=== PATIENT | female | born 1930 | race Caucasian/White ===

== ENCOUNTER 2016-08-09 18:55 | Inpatient (IN) | payer MEDICARE ==
[~2016-08-09 18:55] MED LIST: ACET25TA4 PO; ALIG4CAP PO; BENEPOW8 PO; CALC500T35 PO; CREO3000 PO; CYPR4TAB PO; DIAZ5TAB PO; LEVS0.124 SL; LEXA20TA PO; PLAV75TA29 PO; TRIAM.1%T TOPICAL; VITA10002 PO; VITA100064 PO; VITA400T14 PO; WELC625T2 PO
[2016-08-09 19:03] VITALS: BP 125/66; PULSE 73; RESP 18; TEMP 97.8; O2SAT 97
[2016-08-09] MEDS ORDERED: SODIUM CHLORIDE 0.9% FLUSH 5 ML FLUSH IVF PRN (19:30)
--- NOTE | 2016-08-09 19:30 | PD ---
HPI Chief Complaint: Abdominal Pain Time Seen by Provider: 19:25 Travel History International Travel<30 days: No Contact w/Intl Traveler<30days: No Traveled to known affect area: No History of Present Illness HPI 85-year-old female presents to the emergency department via EMS with complaint of abdominal pain that started today around 1 PM. She has history of intestinal spasms and bowel obstructions. She says it feels like one of her bowel obstructions and that she thinks it is. She has history of colon resection. 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 She denies nausea, vomiting, diarrhea. Had a normal bowel movement this morning and without blood. Abdominal pain is generalized. Denies dysuria, urgency, frequency, hematuria. Denies fever, chills. Denies chest pain, shortness of breath. She reports good appetite prior to onset of abdominal pain. She has not taken any additional medications than her prescribed medication today for her symptoms. Her primary care provider is Dr. Jnoes. Her sales office administrator is Dr. Saha. She has allergies to latex and adhesives. PFSH Past Medical History Arthritis: Yes Asthma: No Autoimmune Disease: No Blood Disorders: Yes (pt is on plavix) Anxiety: Yes Depression: Yes Heart Rhythm Problems: Yes Cancer: Yes (, ) Cardiovascular Problems: Yes High Cholesterol: Yes Chest Pain: No Congestive Heart Failure: No COPD: No Cerebrovascular Accident: No Coronary Artery Disease: Yes Diabetes: No Diminished Hearing: Yes (BOTH EARS) Endocrine: Yes Gastrointestinal Disorders: Yes (hx of intestinal obstruction due to ischemia , 32 per pt ) GERD: Yes Genitourinary: No Headaches: No Hepatitis: No Hiatal Hernia: Yes Hypertension: Yes Immune Disorder: No Implanted Vascular Access Dvce: Yes Kidney Stones: Yes Musculoskeletal: Yes Neurologic: No Psychiatric: Yes Reproductive: No Respiratory: No Migraines: No Myocardial Infarction: No Renal Failure: No Seizures: No Sickle Cell Disease: No Sleep Apnea: No Thyroid Disease: No Ulcer: Yes ?: Not Menopausal: Yes Past Surgical History Abdominal Surgery: Yes (,COLOSTOMY REVERSAL,,COLON RESECTION) Appendectomy: Yes (1951) Arteriovenous Shunt: No Body Medical Devices: back hardware Cardiac Surgery: No Cholecystectomy: Yes Ear Surgery: No Endocrine Surgery: No Eye Surgery: Yes (eye muscle repair [place] cataract surgery) Genitourinary Surgery: No Gynecologic Surgery: Yes (hysterectomy) Hysterectomy: Yes (1963,partial,ovaries left) Insulin Pump: No Joint Replacement: Yes (right knee replaced) Neurologic Surgery: Yes (1994,laminectomy s1,l5,4 fused 2007,lumbar laminectomy & fusion) Oral Surgery: No Pacemaker: Yes Thoracic Surgery: Yes (PACEMAKER PLACEMENT) 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, hemorrhoidectomy) Social History Alcohol Use: No Tobacco Use: No Substance Use: No Allergies-Medications (Allergen,Severity, Reaction): Coded Allergies: Adhesives (Verified Allergy, Severe, REDNESS, ITCH, SWELLING, 08/09/16) Cultivated Oat Pollen (Verified Allergy, Severe, 08/09/16) sneezes Latex (Verified Allergy, Severe, SWELLING AND ITCHING, 08/09/16) *MDRO Multi-Drug Resistant Organism (Verified Allergy, Unknown, 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 Uncoded Allergies: steri strips (Allergy, Severe, skin irritation pain and itching, 06/04/10) Reported Meds & Prescriptions Reported Meds & Active Scripts Active Levsin-SL (Hyoscyamine Sulfate) 0.125 Mg Subl 0.125 Mg SL Q6H Reported Mag-Tab Sr (Magnesium Lactate) 84 Mg Tab 84 Mg PO BID Magnesium Sulfate Inj (Magnesium Sulfate) 4 Gm/100 Ml Bag 4 Gm IV MOWEFR B-Complex (Vitamins-Lipotropics) 1 Tab 1 Tab PO DAILY Proctosol Hc (Hydrocortisone Rectal) 2.5% Cream 1 Applic RECTAL BID PRN [place] Opth (Polyvinyl Alcohol-Povidone Opth Drops) 2.7-2 % Soln 1 Drop EACH EYE QID Creon (Amylase/Lipase/Protease) 12,000-38,000-60,000 Units Cap 1 Cap PO TIDAC Drisdol (Ergocalciferol) 50,000 Unit Cap 50,000 Units PO MONTHLY ON THE Align (Lactobacillus Rhamnosus (GG)) 4 Mg Cap 4 Mg PO DAILY Vitamin D (Cholecalciferol) 1,000 Unit Tab 2,000 Units PO DAILY Vitamin B-12 (Cyanocobalamin) 1,000 Mcg Tab 2,000 Mcg PO DAILY Calcium (Oyster Shell) 500 Mg Tab 500 Mg PO HS Benefiber Powder (Wheat Dextrin Powder) 1 Scoop Container 2 Scoop PO DAILY Mix in water or juice Acetaminophen Pm Extra St (Diphenhydramine-Acetaminophen) 500-25 mg Tab 2 Tab PO HS PRN Triamcinolone Topical (Triamcinolone Acetonide) 0.1 % Oint 1 Applic TOPICAL BID PRN Welchol (Colesevelam HCl) 625 Mg Tab 625 Mg PO BID Lexapro (Escitalopram Oxalate) 20 Mg Tab 20 Mg PO DAILY Diazepam 5 Mg Tab 5 Mg PO HS Plavix (Clopidogrel Bisulfate) 75 Mg Tab 75 Mg PO DAILY Review of Systems Except as stated in HPI: all other systems reviewed are Neg Physical Exam Narrative GENERAL: Well-nourished, well-developed female patient, in no acute distress; afebrile; nontoxic. SKIN: Warm and dry. HEAD: Atraumatic. Normocephalic. EYES: Pupils equal and round. No scleral icterus. No injection or drainage. ENT: Mucosa pink and moist. Airway patent. NECK: Trachea midline. CARDIOVASCULAR: Regular rate and rhythm. No murmur appreciated. RESPIRATORY: No accessory muscle use. Clear to auscultation. Breath sounds equal bilaterally. GASTROINTESTINAL: Abdomen soft, tenderness on palpation to all quadrants, nondistended. Hepatic and splenic margins not palpable. Nonrigid. No guarding. Midline surgical scar and right upper quadrant surgical scar is noted. MUSCULOSKELETAL: No obvious deformities. No clubbing. No cyanosis. No edema. NEUROLOGICAL: Awake and alert. Oriented 3. No obvious cranial nerve deficits. Motor grossly within normal limits. Normal speech. PSYCHIATRIC: Appropriate mood and affect; insight and judgment normal. Data Data Last Documented VS Vital Signs Date Time Temp Pulse Resp B/P Pulse Ox O2 Delivery O2 Flow Rate FiO2 08/09/16 19:24 18 08/09/16 19:03 97.8 73 125/66 97 Orders Complete Blood Count With Diff (08/09/16 19:16) Comprehensive Metabolic Panel (08/09/16 19:16) Prothrombin Time / Inr (Pt) (08/09/16 19:16) Act Partial Throm Time (Ptt) (08/09/16 19:16) Urinalysis - C+S If Indicated (08/09/16 19:16) Ct Abd/Pel W Iv Contrast(Rout) (08/09/16 19:16) Iv Access Insert/Monitor (08/09/16 19:16) Ecg Monitoring (08/09/16 19:16) Oximetry (08/09/16 19:16) Sodium Chloride 0.9% Flush (Ns Flush) (08/09/16 19:30) Lipase (08/09/16 19:16) Ondansetron Inj (Zofran Inj) (08/09/16 20:00) Morphine Inj (Morphine Inj) (08/09/16 20:15) Sodium Chlorid 0.9% 500 Ml Inj (Ns 500 M (08/09/16 20:45) Iohexol 350 Inj (Omnipaque 350 Inj) (08/09/16 20:54) Labs Laboratory Tests Test 08/09/16 19:05 White Blood Count 12.0 TH/MM3 Red Blood Count 4.69 MIL/MM3 Hemoglobin 14.8 GM/DL Hematocrit 43.1 % Mean Corpuscular Volume 91.8 FL Mean Corpuscular Hemoglobin 31.5 PG Mean Corpuscular Hemoglobin 34.3 % Concent Red Cell Distribution Width 13.8 % Platelet Count 188 TH/MM3 Mean Platelet Volume 8.9 FL Neutrophils (%) (Auto) 83.2 % Lymphocytes (%) (Auto) 9.5 % Monocytes (%) (Auto) 6.3 % Eosinophils (%) (Auto) 0.7 % Basophils (%) (Auto) 0.3 % Neutrophils # (Auto) 10.0 TH/MM3 Lymphocytes # (Auto) 1.1 TH/MM3 Monocytes # (Auto) 0.8 TH/MM3 Eosinophils # (Auto) 0.1 TH/MM3 Basophils # (Auto) 0.0 TH/MM3 CBC Comment DIFF FINAL Differential Comment Prothrombin Time 10.8 SEC Prothromb Time International 1.0 RATIO Ratio Activated Partial 24.5 SEC Thromboplast Time Sodium Level 141 MEQ/L Potassium Level 4.2 MEQ/L Chloride Level 105 MEQ/L Carbon Dioxide Level 23.9 MEQ/L Anion Gap 12 MEQ/L Blood Urea Nitrogen 26 MG/DL Creatinine 1.06 MG/DL Estimat Glomerular Filtration 49 ML/MIN Rate Random Glucose 130 MG/DL Calcium Level 10.0 MG/DL Total Bilirubin 1.0 MG/DL Aspartate Amino Transf 130 U/L (AST/SGOT) Alanine Aminotransferase 58 U/L (ALT/SGPT) Alkaline Phosphatase 74 U/L Total Protein 7.3 GM/DL Albumin 3.8 GM/DL Lipase 335 U/L [facility] Medical Decision Making Medical Screen Exam Complete: Yes Emergency Medical Condition: Yes Medical Record Reviewed: Yes Differential Diagnosis bowel obstruction, ileus, abdominal pain Narrative Course 85-year-old female with a history of multiple bowel obstructions and colon resection. She reports history extensive abdominal surgery. She was brought in via edema. Patient placed on cardiopulmonary monitor. IV set obtained. Generalized tenderness to all abdominal quadrants. She is without nausea or vomiting. Denies diarrhea. Had a normal stool this morning. Denies urinary symptoms. CMP, lipase, urinalysis, coags ordered. CT abdomen/pelvis ordered. 1999: Patient feeling nauseated. Zofran ordered. Dr. Lund ordered morphine 2041: WBC 12.0. BUN 26. Creatinine 1.06. AST 1:30. ALT 58. 500ml normal saline bolus ordered. 2100: Dr. Lund assumed patient care at this time. See her note for final disposition. Lucita Green Aug 09, 2016 19:30
[2016-08-09 19:49] LABS: BASOPHIL % 0.3 % (0.0-2.0); EOSINOPHIL # 0.1 TH/MM3 (0-0.4); EOSINOPHIL % 0.7 % (0.0-4.0); HEMATOCRIT 43.1 % (35.0-46.0); HEMO FLAGS DIFF FINAL; LYMPH % 9.5 % (9.0-44.0); LYMPHOCYTE # 1.1 TH/MM3 (1.0-4.8); MEAN CELL VOLUME 91.8 FL (80.0-100.0); MEAN CORPUSCULAR HEMOGLOBIN 31.5 PG (27.0-34.0); MEAN CORPUSCULAR HGB CONC 34.3 % (32.0-36.0); MONO % 6.3 % (0.0-8.0); NEUT % 83.2 % (16.0-70.0); PLATELET COUNT 188 TH/MM3 (150-450); RED BLOOD COUNT 4.69 MIL/MM3 (4.00-5.30); RED CELL DISTRIBUTION WIDTH 13.8 % (11.6-17.2)
[2016-08-09] MEDS ORDERED: ONDANSETRON HCL 4 MG/2 ML VIAL IV PUSH ONE (20:00)
[2016-08-09 20:03] LABS: APTT (PATIENT) 24.5 SEC (24.3-30.1); PROTHROMBIN TIME - PATIENT 10.8 SEC (9.8-11.6)
[2016-08-09] MEDS ORDERED: MORPHINE SULFATE 4 MG/ML INJ IV PUSH ONE (20:15)
[2016-08-09 20:34] LABS: ALKALINE PHOSPHATASE 74 U/L (45-117); ALT (GPT) 58 U/L (10-53); ANION GAP 12 MEQ/L (5-15); AST (GOT) 130 U/L (15-37); BICARBONATE 23.9 MEQ/L (21.0-32.0); BLOOD UREA NITROGEN 26 MG/DL (7-18); CHLORIDE 105 MEQ/L (98-107); GLOMERULAR FILTRATION RATE 49 ML/MIN (>89); SODIUM (NA) 141 MEQ/L (136-145)
[2016-08-09 20:35] LABS: POTASSIUM 4.2 MEQ/L (3.5-5.1)
[2016-08-09] MEDS ORDERED: DRIS50002 PO (20:44)
[2016-08-09] MEDS ORDERED: SODIUM CHLORID 0.9% 500 ML INJ 500 ML IV ONE (20:45)
[2016-08-09] MEDS ORDERED: CREON12 PO (20:46)
[2016-08-09] MEDS ORDERED: PROC2.5C RECTAL (20:50)
[2016-08-09] MEDS ORDERED: FRESDRO EACH EYE (20:50)
[2016-08-09] MEDS ORDERED: B-COTAB27 PO (20:50)
[2016-08-09] MEDS ORDERED: IOHEXOL 350 MG/ML 10 ML VIAL (for RAD DIAG) IV ONE (20:54)
[2016-08-09] MEDS ORDERED: [UNRECOGNIZED DRUG - CODE] IV (20:56)
[2016-08-09] MEDS ORDERED: [UNRECOGNIZED DRUG - CODE] IV (20:59)
[2016-08-09 21:00] VITALS: BP 126/87; PULSE 68; RESP 20; O2SAT 99
[2016-08-09] MEDS ORDERED: MAG-84TA PO (21:01)
--- NOTE | 2016-08-09 21:10 | RADRPT ---
EXAM DATE/TIME: 08/09/2016 20:53 [place] COMPARISON: CTA THORACIC ABDOMINAL AORTA W 3D RECON, April 16, 2016, 0:41. INDICATIONS : Abdomen pain. IV CONTRAST: 85 cc Omnipaque 350 (iohexol) IV ORAL CONTRAST: No oral contrast ingested. RADIATION DOSE: 16.05 CTDIvol (mGy) MEDICAL HISTORY : Cardiovascular disease. Gastroesophageal reflux disease. SURGICAL HISTORY : Hysterectomy. Cholecystectomy.Appendectomy.lUMBAR. ENCOUNTER: Initial ACUITY: 1 day PAIN SCALE: 5/10 LOCATION: Bilateral abdomen. TECHNIQUE: Volumetric scanning of the abdomen and pelvis was performed. Using automated exposure control and ad justment of the mA and/or kV according to patient size, radiation dose was kept as low as reasonably achievable to obtain optimal diagnostic quality images. FINDINGS: Compare March 2016. There is a focally thickened loop of small bowel in the lower anterior abdomen just deep to the chronic seroma in the anterior abdominal wall, best seen on image #47 series 2. Sma ll bowel proximal to this is dilated with some fecalization of small bowel contents. Small bowel dist al to this loop appears decompressed. Findings are characteristic of at least a partial small bowel o bstruction. Lung bases demonstrate some dependent atelectasis. There is some intrahepatic and extra hepatic ducta l dilatation the common bile duct 18 mm similar to March 2016. Previous cholecystectomy. Spleen, a drenals, kidneys and pancreas demonstrate no acute findings. Postoperative hysterectomy and appendectomy. Postop changes lumbar spine with fusion. CONCLUSION: 1. Focally thickened loop of small bowel in the lower anterior abdomen associated with at least a par tial small bowel obstruction. No free fluid or free air. 2. Postoperative cholecystectomy with stable biliary ductal dilatation. 3. Previous fusion lumbar spine. 4. Stable seroma anterior abdominal wall. Manish Gill MD on August 09, 2016 at 21:00 Board Certified Radiologist. This report was verified electronically.
--- NOTE | 2016-08-09 21:47 | PD ---
Physical Exam Narrative I, Dr. Lund, have reviewed the advance practice practitioner's documentation and am in agreement, met with the patient face to face, made the diagnosis, and the medical decision making was done by me. *My assessment and Findings: Obstruction vs. colitis 85yo F with PMH of pacemaker on plavix, spine fusion, multiple small bowel obstructions presents to the ED with abdominal pain since 1pm today. +Nausea. Only vomited a very small amount. Pain is generalized. Denies any fever, chest pain, sob. Pt had multiple bowel obstructions in the past and usually medically managed, last obstruction 3-4 years ago. Pt had normal bowel movement this morning. Currently no flatus. Labs reviewed, mild leukocytosis 12.0. K: 4.2, slightly hemolyzed. BUN/creatinine mildly elevated at 26/1.06. Elevated AST/ALT. Normal bilirubin. Lipase 335. CTa/p showed focally thickened loop of small bowel in lower anterior abdomen associated with at least a partial small bowel obstruction. No free fluid or free air. Consulted and discussed case with general surgeon Dr. Clark. Discussed case with Dr. Moore and accepted to his service. Pt reevaluated at bedside after morphine 2mg IV and pain has improved. Pt given NS IVF, zofran and UA is still pending. I have not seen pt vomit in the ED. Will place NGT if pt is vomiting. Data Data Last Documented VS Vital Signs Date Time Temp Pulse Resp B/P Pulse Ox O2 Delivery O2 Flow Rate FiO2 08/09/16 19:24 18 08/09/16 19:03 97.8 73 125/66 97 Orders Complete Blood Count With Diff (08/09/16 19:16) Comprehensive Metabolic Panel (08/09/16 19:16) Prothrombin Time / Inr (Pt) (08/09/16 19:16) Act Partial Throm Time (Ptt) (08/09/16 19:16) Urinalysis - C+S If Indicated (08/09/16 19:16) Ct Abd/Pel W Iv Contrast(Rout) (08/09/16 19:16) Iv Access Insert/Monitor (08/09/16 19:16) Ecg Monitoring (08/09/16 19:16) Oximetry (08/09/16 19:16) Sodium Chloride 0.9% Flush (Ns Flush) (08/09/16 19:30) Lipase (08/09/16 19:16) Ondansetron Inj (Zofran Inj) (08/09/16 20:00) Morphine Inj (Morphine Inj) (08/09/16 20:15) Sodium Chlorid 0.9% 500 Ml Inj (Ns 500 M (08/09/16 20:45) Iohexol 350 Inj (Omnipaque 350 Inj) (08/09/16 20:54) Labs Laboratory Tests Test 08/09/16 19:05 White Blood Count 12.0 TH/MM3 Red Blood Count 4.69 MIL/MM3 Hemoglobin 14.8 GM/DL Hematocrit 43.1 % Mean Corpuscular Volume 91.8 FL Mean Corpuscular Hemoglobin 31.5 PG Mean Corpuscular Hemoglobin 34.3 % Concent Red Cell Distribution Width 13.8 % Platelet Count 188 TH/MM3 Mean Platelet Volume 8.9 FL Neutrophils (%) (Auto) 83.2 % Lymphocytes (%) (Auto) 9.5 % Monocytes (%) (Auto) 6.3 % Eosinophils (%) (Auto) 0.7 % Basophils (%) (Auto) 0.3 % Neutrophils # (Auto) 10.0 TH/MM3 Lymphocytes # (Auto) 1.1 TH/MM3 Monocytes # (Auto) 0.8 TH/MM3 Eosinophils # (Auto) 0.1 TH/MM3 Basophils # (Auto) 0.0 TH/MM3 CBC Comment DIFF FINAL Differential Comment Prothrombin Time 10.8 SEC Prothromb Time International 1.0 RATIO Ratio Activated Partial 24.5 SEC Thromboplast Time Sodium Level 141 MEQ/L Potassium Level 4.2 MEQ/L Chloride Level 105 MEQ/L Carbon Dioxide Level 23.9 MEQ/L Anion Gap 12 MEQ/L Blood Urea Nitrogen 26 MG/DL Creatinine 1.06 MG/DL Estimat Glomerular Filtration 49 ML/MIN Rate Random Glucose 130 MG/DL Calcium Level 10.0 MG/DL Total Bilirubin 1.0 MG/DL Aspartate Amino Transf 130 U/L (AST/SGOT) Alanine Aminotransferase 58 U/L (ALT/SGPT) Alkaline Phosphatase 74 U/L Total Protein 7.3 GM/DL Albumin 3.8 GM/DL Lipase 335 U/L [facility] Supervised Visit with LIZABETH: Yes Diagnosis Primary Impression: Partial small bowel obstruction Admitting Information Admitting Physician Requests: Admit Lori Lund DO Aug 09, 2016 21:46
[2016-08-09] MEDS ORDERED: ONDANSETRON HCL 4 MG/2 ML VIAL IVP PRN (22:15)
[2016-08-09] MEDS ORDERED: NALOXONE HCL 0.4 MG/ML AMP IV PRN (22:15)
[2016-08-09] MEDS: DOCUSATE SODIUM 100 MG CAP PO SCH ×2 (22:15→22:47)
[2016-08-09] MEDS: SODIUM CHLOR 0.9% 1000 ML INJ 1,000 ML IV SCH (22:47)
--- NOTE | 2016-08-09 23:11 | HHI.HP ---
cc: Carlito Velazquez MD HPI Service [facility] Primary Care Physician Carlito Velazquez MD Admission Diagnosis Partial small bowel obstruction Diagnoses: (1) Partial small bowel obstruction (2) Abdominal pain, recurrent (3) Acute kidney injury superimposed on chronic kidney disease (4) Transaminitis Chief Complaint: Abdominal pain with nausea Travel History International Travel<30 Days: No Contact w/Intl Traveler <30 Da: No Traveled to Known Affected Are: No History of Present Illness Ms. 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 Abdomen/pelvis CT shows at least a partial small bowel obstruction with no free fluid or free air. The patient is seen in the ER. She reports diffuse abdominal pain that is sharp in character and worse in the upper abdomen accompanied by nausea without vomiting. Her symptoms started shortly after lunch today at around 1 p.m. Tried Levsin after she went home; ineffective in ameliorating symptoms. She reports normal BM occurred the morning of 08/09/2016. She has had small bowel obstruction in the past; the last episode was three years ago. Reports that she ate mushroom and crab for lunch with seafood chowder. Denies fever, chills, dizziness, syncope, chest pain, shortness of breath, dysuria, or any with urination, or diarrhea. She denies history of diabetes mellitus, hypertension, coronary artery disease though medical records indicate a past medical history of type 2 diabetes mellitus. She is currently not on any medications for diabetes. . 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 Reported Medications Reported Meds & Active Scripts Active Levsin-SL (Hyoscyamine Sulfate) 0.125 Mg Subl 0.125 Mg SL Q6H Reported Mag-Tab Sr (Magnesium Lactate) 84 Mg Tab 84 Mg PO BID Magnesium Sulfate Inj (Magnesium Sulfate) 4 Gm/100 Ml Bag 4 Gm IV MOWEFR B-Complex (Vitamins-Lipotropics) 1 Tab 1 Tab PO DAILY Proctosol Hc (Hydrocortisone Rectal) 2.5% Cream 1 Applic RECTAL BID PRN Freshkote Opth (Polyvinyl Alcohol-Povidone Opth Drops) 2.7-2 % Soln 1 Drop EACH EYE QID Creon (Amylase/Lipase/Protease) 12,000-38,000-60,000 Units Cap 1 Cap PO TIDAC Drisdol (Ergocalciferol) 50,000 Unit Cap 50,000 Units PO MONTHLY ON THE (Lactobacillus Rhamnosus (GG)) 4 Mg Cap 4 Mg PO DAILY Vitamin D (Cholecalciferol) 1,000 Unit Tab 2,000 Units PO DAILY Vitamin B-12 (Cyanocobalamin) 1,000 Mcg Tab 2,000 Mcg PO DAILY Calcium (Oyster Shell) 500 Mg Tab 500 Mg PO HS Benefiber Powder (Wheat Dextrin Powder) 1 Scoop Container 2 Scoop PO DAILY Mix in water or juice Acetaminophen Pm Extra St (Diphenhydramine-Acetaminophen) 500-25 mg Tab 2 Tab PO HS PRN Triamcinolone Topical (Triamcinolone Acetonide) 0.1 % Oint 1 Applic TOPICAL BID PRN Welchol (Colesevelam HCl) 625 Mg Tab 625 Mg PO BID Lexapro (Escitalopram Oxalate) 20 Mg Tab 20 Mg PO DAILY Diazepam 5 Mg Tab 5 Mg PO HS Plavix (Clopidogrel Bisulfate) 75 Mg Tab 75 Mg PO DAILY Allergies: Coded Allergies: Adhesives (Verified Allergy, Severe, REDNESS, ITCH, SWELLING, 08/09/16) Cultivated Oat Pollen (Verified Allergy, Severe, 08/09/16) sneezes Latex (Verified Allergy, Severe, SWELLING AND ITCHING, 08/09/16) *MDRO Multi-Drug Resistant Organism (Verified Allergy, Unknown, 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 Uncoded Allergies: steri strips (Allergy, Severe, skin irritation pain and itching, 06/04/10) Active Ordered Medications Current Medications IV Flush (NS Flush) 2 ml UNSCH PRN IVF FLUSH AFTER USING IV ACCESS; Start 08/09 at 19:30 Ondansetron HCl (Zofran Inj) 4 mg ONCE ONCE IV PUSH Last administered on 20:28; Start 08/09/16 at 20:00; Stop 08/09/16 at 20:01; Status DC Morphine Sulfate 2 mg 2 mg ONCE ONCE IV PUSH Last administered on 08/09/16 20 :41; Start 08/09/16 at 20:15; Stop 08/09/16 at 20:16; Status DC Sodium Chloride (NS 500 ml Inj) 500 ml @ 500 mls/hr BOLUS ONCE IV Last administered on 08/09/16 21:09; Start 08/09/16 at 20:45; Stop 08/09/16 at 21:44 ; Status DC Iohexol 85 ml 85 ml STK-MED ONCE IV Last administered on 08/09/16 20:54; Start 08/09/16 at 20:54; Stop 08/09/16 at 20:55; Status DC Sodium Chloride (NS 1000 ml Inj) 1,000 ml @ 70 mls/hr [id number] IV Last administered on 08/09/16 22:47; Start 08/09/16 at 22:02 Acetaminophen (Tylenol) 650 mg Q4H PRN PO TEMP > 100.4; Start 08/09/16 at 22:15 Ondansetron HCl (Zofran Inj) 4 mg Q6H PRN IVP NAUSEA OR VOMITING; Start at 22:15 Docusate Sodium (Colace) 100 mg Q12HR PO ; Start 08/10/16 at 09:00; Stop at 09:00; Status DC Naloxone HCl (Narcan Inj) 0.4 mg UNSCH PRN IV SEE LABEL COMMENTS; Start at 22:15 Docusate Sodium (Colace) 100 mg Q12HR PO ; Start 08/09/16 at 22:15 . Family History Cancer on both sides of family Mother with sigmoid colon CA; lived until age 92 Father with skin CA and many digestive problems . Social History Tobacco: denies Alcohol: denies . Physical Exam Vital Signs Vital Signs Date Time Temp Pulse Resp B/P Pulse Ox O2 Delivery O2 Flow Rate FiO2 08/09/16 19:24 18 08/09/16 19:03 97.8 73 18 125/66 97 Physical Exam GENERAL: This is an elderly female patient, in no apparent distress. SKIN: No rashes, ecchymoses or lesions. Cool and dry. HEAD: Atraumatic. Normocephalic. EYES: No scleral icterus. No injection or drainage. ENT: Nose without bleeding, purulent drainage. Dry mucous membranes NECK: Trachea midline. No JVD or lymphadenopathy. CARDIOVASCULAR: Regular rate and rhythm without murmurs, gallops, or rubs. RESPIRATORY: Clear to auscultation. Breath sounds equal bilaterally. No wheezes , rales, or rhonchi. GASTROINTESTINAL: Abdomen: Somewhat hypoactive bowel sounds; multiple abdominal scars; diffusely tender abdomen with palpation; abdomen slightly distended. MUSCULOSKELETAL: Extremities without clubbing, cyanosis, or edema. No calf tenderness. NEUROLOGICAL: Awake and alert. Motor and sensory grossly within normal limits. Normal speech. . Laboratory Laboratory Tests Test 08/09/16 19:05 White Blood Count 12.0 Red Blood Count 4.69 Hemoglobin 14.8 Hematocrit 43.1 Mean Corpuscular Volume 91.8 Mean Corpuscular Hemoglobin 31.5 Mean Corpuscular Hemoglobin 34.3 Concent Red Cell Distribution Width 13.8 Platelet Count 188 Mean Platelet Volume 8.9 Neutrophils (%) (Auto) 83.2 Lymphocytes (%) (Auto) 9.5 Monocytes (%) (Auto) 6.3 Eosinophils (%) (Auto) 0.7 Basophils (%) (Auto) 0.3 Neutrophils # (Auto) 10.0 Lymphocytes # (Auto) 1.1 Monocytes # (Auto) 0.8 Eosinophils # (Auto) 0.1 Basophils # (Auto) 0.0 CBC Comment DIFF FINAL Differential Comment Prothrombin Time 10.8 Prothromb Time International 1.0 Ratio Activated Partial 24.5 Thromboplast Time Sodium Level 141 Potassium Level 4.2 Chloride Level 105 Carbon Dioxide Level 23.9 Anion Gap 12 Blood Urea Nitrogen 26 Creatinine 1.06 Estimat Glomerular Filtration 49 Rate Random Glucose 130 Calcium Level 10.0 Total Bilirubin 1.0 Aspartate Amino Transf 130 (AST/SGOT) Alanine Aminotransferase 58 (ALT/SGPT) Alkaline Phosphatase 74 Total Protein 7.3 Albumin 3.8 Lipase 335 Result Diagram: 08/09/16190408/09/161904 Imaging Abdomen/pelvis CT shows focally thickened loop of small bowel in the lower anterior abdomen associated with at least a partial small bowel obstruction. No free fluid or free air. Postop cholecystectomy with stable biliary ductal dilatation. Previous fusion lumbar spine. Stable seroma anterior abdominal wall. Assessment and Plan Problem List: (1) Partial small bowel obstruction ICD Code: K56.69 Status: Acute (2) Abdominal pain, recurrent ICD Code: R10.9 Status: Acute (3) Acute kidney injury superimposed on chronic kidney disease ICD Code: N17.9 Status: Acute (4) Transaminitis ICD Code: R74.0 Status: Acute Assessment and Plan Partial small bowel obstruction Abdominal pain - Abdomen/pelvis CT shows focally thickened loop of small bowel in the lower anterior abdomen associated with at least a partial small bowel obstruction. No free fluid or free air. Postop cholecystectomy with stable biliary ductal dilatation. Previous fusion lumbar spine. Stable seroma anterior abdominal wall. - Nothing by mouth - IV fluid hydration with Normal Saline at 70 cc per hour - Zofran 4 mg IV every 6 hours as needed for nausea or vomiting - Consult gastroenterology: Patient known to Dr. Saha - Colace 100 mg every 12 hours - Morphine 2 mg IV every 4 hours when necessary pain - General surgery consult - case discussed by Dr. Clark and ER physician; assistance appreciated Acute on chronic kidney disease - likely secondary to dehydration - BUN 26, creatinine 1.06, estimated GFR 49 - IV fluid hydration as above - Repeat BMP in a.m. - Follow trends in renal indices - Avoid nephrotoxins Transaminitis - AST 130, ALT 58 - We'll recheck in a.m. and follow trends DVT prophylaxis - SCDs Written by Tiffanie Cantu, acting as scribe for Dr. Hart on 08/09/16 at 23: 10. . All or portions of this note were transcribed by MARCELA Gonzales. I, Dr. Spike Hart personally performed the history, physical exam, and medical decision making; and confirmed the accuracy of the information in the transcribed note. Authenticated by Dr. Spike Hart on 08/10/16 at 05:42. Code Status FULL CODE . Discussed Condition With ER physician, patient, and patient's family Physician Certification 2 Midnight Certification Type: Admission for Inpatient Services Order for Inpatient Services The services are ordered in accordance with Medicare regulations or non- Medicare payer requirements, as applicable. In the case of services not specified as inpatient-only, they are appropriately provided as inpatient services in accordance with the 2-midnight benchmark. Estimated LOS (days): 3 days is the estimated time the patient will need to remain in the hospital, assuming treatment plan goals are met and no additional complications. Post-Hospital Plan: Home Tiffanie Cantu Aug 09, 2016 23:11 Spike Hart MD Aug 10, 2016 05:44
[2016-08-10] VITALS (7 sets, daily range): BP systolic 134–169; BP diastolic 63–76; PULSE 72–84; RESP 16–24; TEMP 97.6–98.5; O2SAT 95–97
[2016-08-10] MEDS: MORPHINE SULFATE 4 MG/ML INJ IV PUSH PRN ×2 (01:31→08:02)
[2016-08-10] MEDS: HYOSCYAMINE 0.125 MG TAB SL SCH ×5 (01:31→22:17)
[2016-08-10 06:18] LABS: BASOPHIL % 0.1 % (0.0-2.0); EOSINOPHIL % 0.1 % (0.0-4.0); HEMATOCRIT 40.5 % (35.0-46.0); HEMO FLAGS DIFF FINAL; LYMPH % 6.1 % (9.0-44.0); LYMPHOCYTE # 0.6 TH/MM3 (1.0-4.8); MEAN CELL VOLUME 92.6 FL (80.0-100.0); MEAN CORPUSCULAR HEMOGLOBIN 31.9 PG (27.0-34.0); MEAN CORPUSCULAR HGB CONC 34.4 % (32.0-36.0); MONO % 9.2 % (0.0-8.0); NEUT % 84.5 % (16.0-70.0); PLATELET COUNT 155 TH/MM3 (150-450); RED BLOOD COUNT 4.38 MIL/MM3 (4.00-5.30); RED CELL DISTRIBUTION WIDTH 13.8 % (11.6-17.2); WHITE BLOOD COUNT 9.5 TH/MM3 (4.0-11.0)
[2016-08-10 07:18] LABS: ALKALINE PHOSPHATASE 73 U/L (45-117); ALT (GPT) 533 U/L (10-53); ANION GAP 12 MEQ/L (5-15); AST (GOT) 642 U/L (15-37); BICARBONATE 22.8 MEQ/L (21.0-32.0); BLOOD UREA NITROGEN 27 MG/DL (7-18); CHLORIDE 110 MEQ/L (98-107); GLOMERULAR FILTRATION RATE 50 ML/MIN (>89); POTASSIUM 4.1 MEQ/L (3.5-5.1); SODIUM (NA) 145 MEQ/L (136-145)
[2016-08-10] MEDS: DOCUSATE SODIUM 100 MG CAP PO SCH ×2 (07:51→22:17)
[2016-08-10] MEDS: LACTOBACILLUS ACIDOPHILUS TAB PO SCH ×3 (07:51→17:19)
[2016-08-10] MEDS: ESCITALOPRAM OXALATE 20 MG TAB PO SCH (07:52)
[2016-08-10] MEDS: CHOLECALCIFEROL (VIT D3) 1000 UNIT TAB PO SCH (07:52)
[2016-08-10] MEDS: CLOPIDOGREL 75 MG TAB PO SCH (07:52)
[2016-08-10] MEDS: MAGNESIUM CHLORIDE 64 MG TAB PO SCH ×2 (08:00→22:16)
[2016-08-10] MEDS: COLESEVELAM HCL 625 MG TAB PO SCH ×2 (08:01→22:16)
[2016-08-10] MEDS: SODIUM CHLOR 0.9% 1000 ML INJ 1,000 ML IV SCH (08:04)
[2016-08-10] MEDS: ARTIFICIAL TEARS OPTH SOLN 15 ML BTL EACH EYE SCH ×4 (08:05→22:17)
[2016-08-10] MEDS ORDERED: DOCUSATE SODIUM 100 MG CAP PO SCH (09:00)
--- NOTE | 2016-08-10 10:56 | MB ---
cc: SHAW BENAVIDES MD, DAVID W. M.D. DATE OF CONSULTATION 08/10/[address] Hart REASON FOR CONSULTATION Abdominal pain and small bowel obstruction. HISTORY This is a very pleasant 85-year-old female with a history of colon surgery to remove her cecum in the . She states she has had over 30 episodes of small bowel obstruction and will usually come to the hospital for NG decompression and go home after a few days. Her last episode of a bowel obstruction was about three years ago. She also has a history of chronic diarrhea which has been under good control with a combination of Welchol with meals and Benefiber. She states she was in good health until yesterday when she ate her normal meal and then developed her typical abdominal pain that starts on the left side and radiates towards the middle, associated with bloating and nausea but no vomiting. CT scan shows a partial small bowel obstruction. She also has an enlarged biliary tree but appears stable from prior CT. Her LFTs last March were normal but they are elevated now. She had her gallbladder out over 16 years ago. She has no right upper quadrant pain or biliary colic. She states her abdominal pain is much improved. She did not require an NG tube this admission. SOCIAL HISTORY She is . She does have children. She never smoked and does not drink alcohol. MEDICATIONS 1. She has a problem with hypomagnesemia and has a port placed to get her magnesium supplements. 2. She also is on Creon daily with meals. 3. Ergocalciferol 50,000 units monthly. 4. She takes a probiotic called Align. 5. She is on vitamin D. 6. Vitamin B12. 7. A calcium supplement. 8. Benefiber two scoops daily. 9. Welchol with meals. 10. Lexapro 20 mg daily. 11. Valium 5 mg at bedtime. 12. Plavix 75 mg daily. ALLERGIES ADHESIVE TAPE. LATEX. No allergies to medications. PAST MEDICAL HISTORY 1. 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 2. She has a history of hypomagnesemia that requires IV infusions. 3. She has some hearing impairment. 4. She has a spinal stenosis. 5. She has diabetes mellitus which she states she brought under control with diet and exercise. SURGICAL HISTORY 1. She has had a right knee arthroplasty. 2. She had a cecal infarct resulting in right hemicolectomy in the . 3. She has had a hysterectomy. 4. Cholecystectomy over 16 years ago. 5. Appendectomy. 6. She has had two surgeries with Dr. Headley for small bowel obstruction. 7. Lumbar fusion. 8. Pacemaker placement. FAMILY HISTORY She states both parents had a lot of digestive problems. Her mother also had colon cancer involving the descending colon. No family history of inflammatory bowel disease. REVIEW OF SYSTEMS She denies any chest pain, shortness of breath, weight loss. No fever or chills. No pruritus. No fatty food intolerance. Her diarrhea has been under good control with her current regimen. Her abdominal pain is currently improved. Remainder of the 12-point review of systems was negative. PHYSICAL EXAMINATION GENERAL: Physical exam reveals a well-developed female in no acute distress. VITAL SIGNS: Her blood pressure is 169/74, pulse 74, respirations are 20 and nonlabored. Temperature is 97.8, O2 sat is 99% on room air. HEENT: Sclerae anicteric. NECK: Supple without masses. LUNGS: Clear to percussion and auscultation. CHEST: She has a pacemaker in the upper left anterior chest wall and a port on the right anterior chest wall. HEART SOUNDS: Regular, without murmur, gallop or rub. ABDOMEN: Mildly distended but soft with hypoactive bowel sounds. She has a midline surgical scar with some underlying induration. Very minimal tenderness. No palpable hernias. NEURO: No cyanosis, clubbing or edema. SKIN: Warm and dry. She was alert and oriented with a pleasant affect and no gross motor deficits. LABORATORY FINDINGS Her electrolytes are unremarkable. Her magnesium is 1.4. Her AST yesterday was 130 and is up to 642 today. Her ALT was 58 and is up to 533 today. Her alk phos has remained normal in the 70s and her total bilirubin has remained stable at 1.0. Albumin is 3.2, lipase was normal at 335. IMAGING STUDIES CT scan of the abdomen and pelvis done yesterday shows some focally thickened loop of small bowel in the lower anterior abdominal area associated with least a partial small bowel obstruction. No free fluid or free air. She has some intrahepatic and extrahepatic ductal dilatation with the common bile duct up to 18 mm but it is similar to March of 2016. The pancreas appears unremarkable. She also has a stable seroma involving the anterior abdominal wall. IMPRESSION AND RECOMMENDATIONS 1. Partial small bowel obstruction. The patient is not passing any flatus or stool but is not nauseated. She is currently being followed by the general surgeons. Most likely has partial small bowel obstruction due to adhesions. 2. Elevated liver transaminases. This appears to be a new finding and is of concern. I do not see any new medications. According to our office records, I was told by our nurse that her LFTs were normal but back in March of 2016 in the hospital I see her AST was 128 and ALT 63, so this is not a new finding. There is a possibility she may have some common duct stones that are floating in the bile duct. Unfortunately, she cannot have an MRCP because of her pacemaker. Eventually we can schedule her for endoscopic ultrasound. We will repeat her LFTs tomorrow and follow with you. Thank you for this consultation. MD RANDY Palacios/GAVIN /9:17 AM /9:34 AM [facility]ACE
--- NOTE | 2016-08-10 11:20 | HHI.PR ---
Subjective Remarks Patient seen in follow-up for partial small bowel obstruction, elevated LFTs, acute on chronic kidney injury. Patient reports feeling slightly better this morning. Still having some mild abdominal discomfort. She denies nausea or vomiting. Not passing flatus. No bowel movements. Objective Vitals Vital Signs Date Time Temp Pulse Resp B/P Pulse Ox O2 Delivery O2 Flow Rate FiO2 08/10/16 08:05 Room Air 08/10/16 08:05 78 08/10/16 08:00 98.5 84 18 152/76 95 08/10/16 00:36 Room Air 08/10/16 00:25 74 20 169/74 99 08/09/16 21:00 68 20 126/87 99 Room Air 08/09/16 19:24 18 08/09/16 19:03 97.8 73 18 125/66 97 I/O 08/09/16 08/09/16 08/09/16 08/10/16 08/10/16 08/10/16 07:00 15:00 23:00 07:00 15:00 23:00 Intake Total 639 ml 212 ml Balance 639 ml 212 ml Intake IV Total 639 ml 212 ml Result Diagram: 08/10/1631 08/10/16530 Objective Remarks GENERAL: Elderly female in no apparent distress. CARDIOVASCULAR: Normal rate and regular rhythm without murmurs, gallops, or rubs. RESPIRATORY: Good respiratory efforts. Breath sounds equal and clear to auscultation bilaterally. GASTROINTESTINAL: Abdomen soft, non-distended. Mildly tender to palpation diffusely. Hypoactive bowel sounds MUSCULOSKELETAL: Extremities without cyanosis, or edema. NEURO: Alert & Oriented x4 to person, place, time, situation. Moves all ext x4 PSYCH: Appropriate mood and affect. A/P Problem List: (1) Partial small bowel obstruction ICD Code: K56.69 Status: Acute (2) Abdominal pain, recurrent ICD Code: R10.9 Status: Acute (3) Acute kidney injury superimposed on chronic kidney disease ICD Code: N17.9 Status: Acute (4) Transaminitis ICD Code: R74.0 Status: Acute Assessment and Plan 85-year-old female with: Partial small bowel obstruction: Likely secondary to adhesions from previous abdominal surgeries. Abdominal pain - Abdomen/pelvis CT shows focally thickened loop of small bowel in the lower anterior abdomen associated with at least a partial small bowel obstruction. No free fluid or free air. Postop cholecystectomy with stable biliary ductal dilatation. Previous fusion lumbar spine. Stable seroma anterior abdominal wall. -General surgery following. Keep nothing by mouth. Follow-up KUB in a.m. - IV fluid hydration with Normal Saline at 70 cc per hour - Zofran 4 mg IV every 6 hours as needed for nausea or vomiting -Gastroenterology consulted. - Colace 100 mg every 12 hours - Morphine 2 mg IV every 4 hours when necessary pain - Ice pack for anterior abdominal wall seroma. Acute on chronic kidney disease - likely secondary to dehydration - IV fluid hydration as above - Follow-up labs in a.m. - Avoid nephrotoxins Transaminitis - AST 130, ALT 58 -GI following. Plan for endoscopy ultrasound possibly outpatient. Follow-up LFTs in a.m. Chronic hypomagnesemia: The patient normally gets infusion of 4 g IV magnesium sulfate 3 times a week. We'll continue the same in the hospital. Discussed with RN DVT prophylaxis - Andrzej Prater MD Aug 10, 2016 11:20
[2016-08-10] MEDS: MAGNESIUM SULFATE 4 GM/NS 100 ML IV SCH ×2 (14:54)
[2016-08-11] VITALS (8 sets, daily range): BP systolic 114–152; BP diastolic 57–67; PULSE 62–75; RESP 16–20; TEMP 96–98.8; O2SAT 93–97
[2016-08-11] MEDS: HYOSCYAMINE 0.125 MG TAB SL SCH ×4 (05:58→22:22)
[2016-08-11] MEDS: SODIUM CHLOR 0.9% 1000 ML INJ 1,000 ML IV SCH ×2 (05:59→17:57)
--- NOTE | 2016-08-11 06:13 | RADRPT ---
EXAM DATE/TIME: 08/11/2016 04:37 [facility] COMPARISON: No previous studies available for comparison. INDICATIONS : Abdominal pain. MEDICAL HISTORY : Cardiovascular disease. Gastroesophageal reflux disease. SURGICAL HISTORY : Hysterectomy. Cholecystectomy. Appendectomy. ENCOUNTER: Initial ACUITY: 2 days PAIN SCORE: Non-responsive. LOCATION: abdomen. FINDINGS: Lumbar spinal hardware noted. Scattered gas in the colon/mid small bowel. Scattered contrast in the c olon. No gross dilatation of gas filled loops. Surgical clips in the right hemiabdomen. CONCLUSION: Nonspecific bowel gas pattern. Demetrius Downs MD on August 11, 2016 at 6:10 Board Certified Radiologist. This report was verified electronically.
[2016-08-11 06:18] LABS: HEMATOCRIT 37.4 % (35.0-46.0); MEAN CELL VOLUME 95.2 FL (80.0-100.0); MEAN CORPUSCULAR HEMOGLOBIN 31.3 PG (27.0-34.0); MEAN CORPUSCULAR HGB CONC 32.9 % (32.0-36.0); PLATELET COUNT 143 TH/MM3 (150-450); RED BLOOD COUNT 3.92 MIL/MM3 (4.00-5.30); RED CELL DISTRIBUTION WIDTH 14.2 % (11.6-17.2); REVIEW FLAG FINAL; WHITE BLOOD COUNT 6.9 TH/MM3 (4.0-11.0)
[2016-08-11 06:36] LABS: POTASSIUM 3.8 MEQ/L (3.5-5.1)
[2016-08-11 06:40] LABS: INDIRECT BILIRUBIN 0.6 MG/DL (0.0-0.8); TOTAL BILIRUBIN ADULT 0.8 MG/DL (0.2-1.0)
--- NOTE | 2016-08-11 08:34 | MB ---
cc: LOUIS VELASQUEZ M.D. DATE OF CONSULTATION 08/10/2016 REASON FOR CONSULTATION Partial bowel obstruction. HISTORY OF PRESENT ILLNESS The patient is an 85-year-old female known to Dr. Headley who had colon surgery in the to remove her cecum. The patient has had over 30 episodes of bowel obstruction and comes to the hospital for decompression and is discharged after a few days without surgery. Her last episode of obstruction was three years ago. The patient was in good health until 08/09 when she developed abdominal pain. She had nausea and bloating and pain but no vomiting. CT shows partial small-bowel obstruction with a loop of bowel with a focally thickened loop in the lower anterior abdomen. PAST MEDICAL HISTORY 1. Hearing-impairment. 2. Continued hypomagnesemia requiring IV outpatient infusions. 3. Spinal stenosis. 4. Diet-controlled diabetes. PAST SURGERIES 1. Pacemaker insertion. 2. Lumbar fusion. 3. cecal resection. 4. Cholecystectomy. 5. Hysterectomy. 6. Right knee arthroplasty. MEDICATIONS Many and include - 1. Magnesium tab 84 mg b.i.d. 1. Mag sulfate 4 grams IV Wednesday, Wednesday, Wednesday. 2. B complex daily. 3. Hydrocortisone rectal 2.5% cream b.i.d. p.r.n. 4. Creon one cap t.i.d. 5. Drisdol 50,000 units q. month. 6. Lactobacillus 4 mg p.o. daily. 7. Vitamin D 2000 units daily. 8. Vitamin B12 2000 mcg daily. 9. Calcium 500 mg p.o. q.h.s. 10. Benefiber powder two scoops daily. 11. Triamcinolone topical b.i.d. 12. Welchol 625 mg b.i.d. 13. Lexapro 20 mg p.o. q. day. 14. Diazepam 5 mg p.o. q.h.s. 15. Plavix 75 mg p.o. daily. ALLERGIES ADHESIVES. LATEX which causes swelling and itching. STERI-STRIPS causes some itching and skin irritation. PHYSICAL EXAMINATION GENERAL: An elderly female in no acute distress. VITALS: BP 152/76, pulse 84, respirations 18, temperature 98.5, 95% saturation on room air. HEENT: Sclerae anicteric. Pupils are reactive. CHEST: Clear to auscultation. CARDIAC EXAM: Regular rate and rhythm. ABDOMEN: Soft with a well-healed midline scar as well as a right transverse mid-abdominal incision. There is some swelling in the mid-abdomen where the patient's known seroma is located. She has minimal to moderate pain to deep palpation. EXTREMITIES: Pulses are present. NEUROLOGIC: Exam is nonfocal. LABORATORY VALUES WBCs of 9.5, hemoglobin 13.9, platelets of 155,000. Electrolytes - Sodium 145, potassium 4.1, BUN and creatinine 27 and 1.04. AST elevated at 642, ALT 533, total bilirubin 1.0, alkaline phosphatase 73. CT is as indicated above. ASSESSMENT AND RECOMMENDATIONS Partial small-bowel obstruction with elevated LFTs. The etiology of this is unclear. GI is following the patient for this. We will manage the patient nonoperatively at this time but keep her n.p.o. and give IV fluids. We will place a nasogastric tube if she has any emesis. We will also check a serum magnesium to make sure that she receives supplements if this is low. We will follow with you. Thank you for asking us to see this individual. MD ANNALEE Langley/GAVIN /8:31 PM /7:20 AM
[2016-08-11] MEDS: COLESEVELAM HCL 625 MG TAB PO SCH ×2 (09:00→20:51)
[2016-08-11] MEDS: ESCITALOPRAM OXALATE 20 MG TAB PO SCH (09:20)
[2016-08-11] MEDS: CHOLECALCIFEROL (VIT D3) 1000 UNIT TAB PO SCH (09:20)
[2016-08-11] MEDS: CLOPIDOGREL 75 MG TAB PO SCH (09:21)
[2016-08-11] MEDS: MAGNESIUM CHLORIDE 64 MG TAB PO SCH ×2 (09:21→20:51)
[2016-08-11] MEDS: DOCUSATE SODIUM 100 MG CAP PO SCH ×2 (09:22→20:51)
[2016-08-11] MEDS: ARTIFICIAL TEARS OPTH SOLN 15 ML BTL EACH EYE SCH ×4 (09:22→20:53)
[2016-08-11] MEDS: LACTOBACILLUS ACIDOPHILUS TAB PO SCH ×3 (09:34→17:57)
--- NOTE | 2016-08-11 10:03 | HHI.GIFU ---
GI Follow-up Note Consult Follow-up Subjective: Patient laying in bed comfortably, looks better, had a bowel movement. No nausea or vomiting. Objective: PHYSICAL EXAMINATION: Vitals signs stable No fever ABDOMEN: no change except BS more audible. SKIN: warm and dry. LABORATORY CLERK: alert and oriented times three. Available Data (labs, X- Rays, Procedues) : LFTs decreased. ASSESSMENT/PLAN: 1. Partial SBO-chronic recurring problem. Seems to be opening up. Will start clear liquids. 2. Elevated transaminases-improved. Etiology to be determined. Will order serology but consider EUS in the future. Dr Soriano to follow after today. It was a pleasure seeing Sherry Teran. Thank you for this consult. Entered by: Evan Martinez MD Aug 11, 2016 10:03
--- NOTE | 2016-08-11 10:36 | HHI.PR ---
Subjective Remarks No acute events overnight. Afebrile, vital signs stable. Patient had a bowel movement this morning. She states it had some diarrhea but was mostly formed stool. Her abdomen is much less distended than yesterday. She would like to drink some water. She denies nausea/vomiting. Objective Vitals Vital Signs Date Time Temp Pulse Resp B/P Pulse Ox O2 Delivery O2 Flow Rate FiO2 08/11/16 08:00 96.0 72 16 152/67 97 08/11/16 04:00 98.0 69 16 123/60 93 08/11/16 00:00 98.2 75 17 114/57 97 08/10/16 20:00 98.1 74 16 157/71 97 08/10/16 16:00 97.6 72 24 136/63 95 08/10/16 11:38 98.0 75 23 134/63 95 08/10/16 11:05 77 I/O 08/10/16 08/10/16 08/10/16 08/11/16 08/11/16 08/11/16 07:00 15:00 23:00 07:00 15:00 23:00 Intake Total 639 ml 212 ml 234 ml 0 ml Balance 639 ml 212 ml 234 ml 0 ml Intake Oral 0 ml 0 ml IV Total 639 ml 212 ml 234 ml # Voids 2 1 # Bowel Movements 1 1 Result Diagram: 08/11/16 0556 08/11/16 0556 Objective Remarks GENERAL: Elderly female in no apparent distress. CARDIOVASCULAR: Normal rate and regular rhythm without murmurs, gallops, or rubs. RESPIRATORY: Good respiratory efforts. Breath sounds equal and clear to auscultation bilaterally. GASTROINTESTINAL: Abdomen soft, non-distended. Positive bowel sounds. Nontender to palpation. No peritoneal signs. MUSCULOSKELETAL: Extremities without cyanosis, or edema. NEURO: Alert & Oriented x4 to person, place, time, situation. Moves all ext x4 PSYCH: Appropriate mood and affect. A/P Problem List: (1) Partial small bowel obstruction ICD Code: K56.69 Status: Acute (2) Abdominal pain, recurrent ICD Code: R10.9 Status: Acute (3) Acute kidney injury superimposed on chronic kidney disease ICD Code: N17.9 Status: Resolved (4) Transaminitis ICD Code: R74.0 Status: Acute Assessment and Plan 85-year-old female with: Partial small bowel obstruction: Likely secondary to adhesions from previous abdominal surgeries. Resolved. Patient with BM this am. Diet advanced to clear liquids. Abdominal pain - Abdomen/pelvis CT on admission shows focally thickened loop of small bowel in the lower anterior abdomen associated with at least a partial small bowel obstruction. No free fluid or free air. Postop cholecystectomy with stable biliary ductal dilatation. Previous fusion lumbar spine. Stable seroma anterior abdominal wall. -General surgery following. KUB this morning showed no dilatation or gas filled loops of bowel. Diet advanced. - IV fluid hydration with Normal Saline at 70 cc per hour, can DC once patient tolerating by mouth - Zofran 4 mg IV every 6 hours as needed for nausea or vomiting - Colace 100 mg every 12 hours - Morphine 2 mg IV every 4 hours when necessary pain - Ice pack for anterior abdominal wall seroma. Acute on chronic kidney disease - resolved Transaminitis - AST 128, ALT 268 -GI following. Plan for endoscopy ultrasound possibly outpatient. Follow-up LFTs in a.m. Chronic hypomagnesemia: The patient normally gets infusion of 4 g IV magnesium sulfate 3 times a week. We'll continue the same in the hospital. DVT prophylaxis - SCDs Disposition Possibly to home tomorrow if tolerating by mouth. Patient seen and evaluated with resident under direct supervision, agree with assessment and plan. I attest that I had a [id number] encounter with the patient on the same day, and personally performed and documented my assessment and findings in the medical record. Yeni Anderson MD R3 Aug 11, 2016 10:36 Andrzej Quiñonez MD Aug 11, 2016 12:47
[2016-08-11 11:35] LABS: TRANSFERRIN IRON PROFILE 220 MG/DL (200-360)
--- NOTE | 2016-08-11 13:09 | HHI.PR ---
Subjective Subjective Notes Resting in bed Reports two BMs overnight Son in law at bedside Objective Vitals/I&O Vital Signs Date Time Temp Pulse Resp B/P Pulse Ox O2 Delivery O2 Flow Rate FiO2 08/11/16 08:30 63 08/11/16 08:00 96.0 16 152/67 97 08/10/16 08:05 Room Air Labs Laboratory Tests Test 08/11/16 08/11/16 05:56 10:41 White Blood Count 6.9 Red Blood Count 3.92 Hemoglobin 12.3 Hematocrit 37.4 Mean Corpuscular Volume 95.2 Mean Corpuscular Hemoglobin 31.3 Mean Corpuscular Hemoglobin 32.9 Concent Red Cell Distribution Width 14.2 Platelet Count 143 Mean Platelet Volume 8.6 Sodium Level 146 Potassium Level 3.8 Chloride Level 114 Carbon Dioxide Level 22.0 Anion Gap 10 Blood Urea Nitrogen 22 Creatinine 0.82 Estimat Glomerular Filtration 66 Rate Random Glucose 90 Calcium Level 8.4 Total Bilirubin 0.8 Direct Bilirubin 0.2 Indirect Bilirubin 0.6 Aspartate Amino Transf 128 (AST/SGOT) Alanine Aminotransferase 268 (ALT/SGPT) Alkaline Phosphatase 55 Total Protein 5.6 Albumin 2.8 Iron Level 37 Total Iron Binding Capacity 308 Percent Iron Saturation 12.0 Cardiovascular: Regular Lungs: Clear Abdomen: Non-distended, Non-tender Extremities: No edema A/P Assessment and Plan 85 year old female with PSBO -+BM -Start clears; advance as tolerated -Replace Mag per schedule at home -Continue non-operative treatment Attending Note - Dr. Clark Abdomen soft and nontender. The exam, history, and the medical decision-making described in the above note were completed with the assistance of the mid-level provider. I reviewed and agree with the findings presented. I attest that I had a [id number] encounter with the patient on the same day, and personally performed and documented my assessment and findings in the medical record. Lucia Jones Aug 11, 2016 13:09 Jose Clark MD Aug 17, 2016 21:28
[2016-08-11] MEDS: ACETAMINOPHEN 325 MG TAB PO PRN ×2 (19:07→22:26)
[2016-08-12] VITALS: BP 117/67; PULSE 68; RESP 20; TEMP 97; O2SAT 96
[2016-08-12 04:00] VITALS: BP 118/58; PULSE 66; RESP 20; TEMP 97.6; O2SAT 97
[2016-08-12 06:02] LABS: AUTOMATED NEUTROPHIL # 3.8 TH/MM3 (1.8-7.7); BASOPHIL % 0.3 % (0.0-2.0); EOSINOPHIL # 0.2 TH/MM3 (0-0.4); HEMATOCRIT 34.3 % (35.0-46.0); HEMO FLAGS DIFF FINAL; LYMPHOCYTE # 1.1 TH/MM3 (1.0-4.8); MEAN CELL VOLUME 93.3 FL (80.0-100.0); MEAN CORPUSCULAR HEMOGLOBIN 31.9 PG (27.0-34.0); MEAN CORPUSCULAR HGB CONC 34.2 % (32.0-36.0); MONO % 10.3 % (0.0-8.0); NEUT % 66.4 % (16.0-70.0); PLATELET COUNT 138 TH/MM3 (150-450); RED BLOOD COUNT 3.68 MIL/MM3 (4.00-5.30); RED CELL DISTRIBUTION WIDTH 13.9 % (11.6-17.2); WHITE BLOOD COUNT 5.7 TH/MM3 (4.0-11.0)
[2016-08-12] MEDS: HYOSCYAMINE 0.125 MG TAB SL SCH ×3 (06:22→16:50)
[2016-08-12 06:27] LABS: ALT (GPT) 165 U/L (10-53); ANION GAP 8 MEQ/L (5-15); AST (GOT) 50 U/L (15-37); BICARBONATE 25.4 MEQ/L (21.0-32.0); BLOOD UREA NITROGEN 15 MG/DL (7-18); CHLORIDE 113 MEQ/L (98-107); GLOMERULAR FILTRATION RATE 68 ML/MIN (>89); POTASSIUM 3.7 MEQ/L (3.5-5.1); SODIUM (NA) 146 MEQ/L (136-145)
[2016-08-12 06:29] LABS: ALKALINE PHOSPHATASE 47 U/L (45-117); TOTAL BILIRUBIN ADULT 0.7 MG/DL (0.2-1.0)
[2016-08-12] MEDS: ACETAMINOPHEN 325 MG TAB PO PRN (06:33)
[2016-08-12] MEDS: SODIUM CHLOR 0.9% 1000 ML INJ 1,000 ML IV SCH (07:14)
[2016-08-12 08:00] VITALS: BP 106/79; PULSE 62; PULSE 75; RESP 20; TEMP 97.4; O2SAT 100
[2016-08-12] MEDS: DOCUSATE SODIUM 100 MG CAP PO SCH (09:00)
[2016-08-12] MEDS: CHOLECALCIFEROL (VIT D3) 1000 UNIT TAB PO SCH (09:25)
[2016-08-12] MEDS: LACTOBACILLUS ACIDOPHILUS TAB PO SCH ×3 (09:25→16:50)
[2016-08-12] MEDS: MAGNESIUM CHLORIDE 64 MG TAB PO SCH (09:25)
[2016-08-12] MEDS: COLESEVELAM HCL 625 MG TAB PO SCH (09:25)
[2016-08-12] MEDS: CLOPIDOGREL 75 MG TAB PO SCH (09:25)
[2016-08-12] MEDS: ESCITALOPRAM OXALATE 20 MG TAB PO SCH (09:25)
[2016-08-12] MEDS: ARTIFICIAL TEARS OPTH SOLN 15 ML BTL EACH EYE SCH ×3 (09:26→16:50)
--- NOTE | 2016-08-12 09:27 | HHI.PR ---
Subjective Remarks Patient reports several loose stool overnight. Otherwise no new complaints. No abdominal pain, nausea or vomiting. Objective Vitals Vital Signs Date Time Temp Pulse Resp B/P Pulse Ox O2 Delivery O2 Flow Rate FiO2 08/12/16 04:00 97.6 66 20 118/58 97 08/12/16 00:00 97.0 68 20 117/67 96 08/11/16 20:00 98.6 62 20 137/65 97 08/11/16 16:00 98.2 67 18 141/63 97 08/11/16 12:00 98.8 62 18 125/58 96 08/11/16 09:30 72 I/O 08/11/16 08/11/16 08/11/16 08/12/16 08/12/16 08/12/16 07:00 15:00 23:00 07:00 15:00 23:00 Intake Total 0 ml 1895 ml 240 ml Balance 0 ml 1895 ml 240 ml Intake Oral 0 ml 480 ml 240 ml IV Total 1415 ml # Voids 1 2 4 # Bowel Movements 1 0 Result Diagram: 08/12/16 0455 08/12/16 0455 Objective Remarks GENERAL: Elderly female in no apparent distress. CARDIOVASCULAR: Normal rate and regular rhythm without murmurs, gallops, or rubs. RESPIRATORY: Good respiratory efforts. Breath sounds equal and clear to auscultation bilaterally. GASTROINTESTINAL: Abdomen soft, non-distended. Normal and active bowel sounds. MUSCULOSKELETAL: Extremities without cyanosis, or edema. NEURO: Alert & Oriented x4 to person, place, time, situation. Moves all ext x4 PSYCH: Appropriate mood and affect. A/P Problem List: (1) Partial small bowel obstruction ICD Code: K56.69 Status: Acute (2) Abdominal pain, recurrent ICD Code: R10.9 Status: Acute (3) Acute kidney injury superimposed on chronic kidney disease ICD Code: N17.9 Status: Resolved (4) Transaminitis ICD Code: R74.0 Status: Acute Assessment and Plan 85-year-old female with: Partial small bowel obstruction: Likely secondary to adhesions from previous abdominal surgeries. Resolved. Patient with loose stool this am. Diet advanced to soft. - Abdomen/pelvis CT on admission shows focally thickened loop of small bowel in the lower anterior abdomen associated with at least a partial small bowel obstruction. No free fluid or free air. Postop cholecystectomy with stable biliary ductal dilatation. Previous fusion lumbar spine. Stable seroma anterior abdominal wall. -General surgery and GI following. Advance to regular diet today -Discontinue IV fluid today. - Zofran 4 mg IV every 6 hours as needed for nausea or vomiting -Hold Colace - Ice pack for anterior abdominal wall seroma. Acute on chronic kidney disease - resolved Transaminitis: Improving. -GI following. Plan for endoscopy ultrasound possibly outpatient. Follow-up LFTs in a.m. Chronic hypomagnesemia: The patient normally gets infusion of 4 g IV magnesium sulfate 3 times a week. Check mag. Continue the same in the hospital. DVT prophylaxis - SCDs Discharge Planning Plan to discharge tomorrow if continue to improve. Andrzej Quiñonez MD Aug 12, 2016 09:27 Andrzej Quiñonez MD Aug 12, 2016 09:27
[2016-08-12] MEDS: MAGNESIUM SULFATE 4 GM/NS 100 ML IV SCH ×2 (09:28)
--- NOTE | 2016-08-12 09:38 | HHI.PR ---
Subjective Subjective Notes Up to chair Reports several loose BMs overnight Wants to try some scrambled eggs Objective Vitals/I&O Vital Signs Date Time Temp Pulse Resp B/P Pulse Ox O2 Delivery O2 Flow Rate FiO2 08/12/16 04:00 97.6 66 20 118/58 97 08/10/16 08:05 Room Air Labs Laboratory Tests Test 08/11/16 08/12/16 10:41 04:55 Iron Level 37 Total Iron Binding Capacity 308 Percent Iron Saturation 12.0 Hepatitis A IgM Antibody NEGATIVE Hepatitis B Surface Antigen NEGATIVE Hepatitis B Core IgM Antibody NEGATIVE Hepatitis C Antibody NEGATIVE White Blood Count 5.7 Red Blood Count 3.68 Hemoglobin 11.7 Hematocrit 34.3 Mean Corpuscular Volume 93.3 Mean Corpuscular Hemoglobin 31.9 Mean Corpuscular Hemoglobin 34.2 Concent Red Cell Distribution Width 13.9 Platelet Count 138 Mean Platelet Volume 8.7 Neutrophils (%) (Auto) 66.4 Lymphocytes (%) (Auto) 20.0 Monocytes (%) (Auto) 10.3 Eosinophils (%) (Auto) 3.0 Basophils (%) (Auto) 0.3 Neutrophils # (Auto) 3.8 Lymphocytes # (Auto) 1.1 Monocytes # (Auto) 0.6 Eosinophils # (Auto) 0.2 Basophils # (Auto) 0.0 CBC Comment DIFF FINAL Differential Comment Sodium Level 146 Potassium Level 3.7 Chloride Level 113 Carbon Dioxide Level 25.4 Anion Gap 8 Blood Urea Nitrogen 15 Creatinine 0.80 Estimat Glomerular Filtration 68 Rate Random Glucose 83 Calcium Level 8.3 Total Bilirubin 0.7 Aspartate Amino Transf 50 (AST/SGOT) Alanine Aminotransferase 165 (ALT/SGPT) Alkaline Phosphatase 47 Total Protein 5.4 Albumin 2.8 Cardiovascular: Regular Lungs: Clear Abdomen: Non-distended, Non-tender Extremities: No edema A/P Assessment and Plan 85 year old female with PSBO -+BM -Advance to soft diet today -Check Mag levels -Replace Mag per schedule at home -Continue non-operative treatment Attending note - Dr. Clark Abdomen benign; pt. feels she is no longer obstructed. The exam, history, and the medical decision-making described in the above note were completed with the assistance of the mid-level provider. I reviewed and agree with the findings presented. I attest that I had a [id number] encounter with the patient on the same day, and personally performed and documented my assessment and findings in the medical record. Lucia Jones Aug 12, 2016 09:38 Jose Clark MD Aug 17, 2016 21:32
--- NOTE | 2016-08-12 10:44 | HHI.GIFU ---
Subjective Remarks Feeling better overall.. no abdominal pain loose stools at present taking welchol states fiber has also previously helped her Objective Vitals I&O Vital Signs Date Time Temp Pulse Resp B/P Pulse Ox O2 Delivery O2 Flow Rate FiO2 08/12/16 04:00 97.6 66 20 118/58 97 08/12/16 00:00 97.0 68 20 117/67 96 08/11/16 20:00 98.6 62 20 137/65 97 08/11/16 16:00 98.2 67 18 141/63 97 08/11/16 12:00 98.8 62 18 125/58 96 I/O 08/11/16 08/11/16 08/11/16 08/12/16 08/12/16 08/12/16 07:00 15:00 23:00 07:00 15:00 23:00 Intake Total 0 ml 1895 ml 240 ml Balance 0 ml 1895 ml 240 ml Intake Oral 0 ml 480 ml 240 ml IV Total 1415 ml # Voids 1 2 4 # Bowel Movements 1 0 Laboratory Laboratory Tests Test 08/11/16 08/12/16 10:41 04:55 Iron Level 37 Total Iron Binding Capacity 308 Percent Iron Saturation 12.0 Hepatitis A IgM Antibody NEGATIVE Hepatitis B Surface Antigen NEGATIVE Hepatitis B Core IgM Antibody NEGATIVE Hepatitis C Antibody NEGATIVE White Blood Count 5.7 Red Blood Count 3.68 Hemoglobin 11.7 Hematocrit 34.3 Mean Corpuscular Volume 93.3 Mean Corpuscular Hemoglobin 31.9 Mean Corpuscular Hemoglobin 34.2 Concent Red Cell Distribution Width 13.9 Platelet Count 138 Mean Platelet Volume 8.7 Neutrophils (%) (Auto) 66.4 Lymphocytes (%) (Auto) 20.0 Monocytes (%) (Auto) 10.3 Eosinophils (%) (Auto) 3.0 Basophils (%) (Auto) 0.3 Neutrophils # (Auto) 3.8 Lymphocytes # (Auto) 1.1 Monocytes # (Auto) 0.6 Eosinophils # (Auto) 0.2 Basophils # (Auto) 0.0 CBC Comment DIFF FINAL Differential Comment Sodium Level 146 Potassium Level 3.7 Chloride Level 113 Carbon Dioxide Level 25.4 Anion Gap 8 Blood Urea Nitrogen 15 Creatinine 0.80 Estimat Glomerular Filtration 68 Rate Random Glucose 83 Calcium Level 8.3 Total Bilirubin 0.7 Aspartate Amino Transf 50 (AST/SGOT) Alanine Aminotransferase 165 (ALT/SGPT) Alkaline Phosphatase 47 Total Protein 5.4 Albumin 2.8 Imaging Last Impressions Abdomen X-Ray 08/11/16 0600 Signed Impressions: Service Date/Time: Thursday, August 11, 2016 04:37 - CONCLUSION: Nonspecific bowel gas pattern. Demetrius Downs MD Abdomen/Pelvis CT 08/09/16 1916 Signed Impressions: Service Date/Time: Tuesday, August 09, 2016 20:53 - CONCLUSION: 1. Focally thickened loop of small bowel in the lower anterior abdomen associated with at least a partial small bowel obstruction. No free fluid or free air. 2. Postoperative cholecystectomy with stable biliary ductal dilatation. 3. Previous fusion lumbar spine. 4. Stable seroma anterior abdominal wall. Manish Gill MD Laboratory Tests Test 08/09/16 08/10/16 08/11/16 08/11/16 19:05 05:31 05:56 10:41 Prothrombin Time 10.8 SEC Prothromb Time International 1.0 RATIO Ratio Activated Partial 24.5 SEC Thromboplast Time Lipase 335 U/L Magnesium Level 1.4 MG/DL Direct Bilirubin 0.2 MG/DL Indirect Bilirubin 0.6 MG/DL Iron Level 37 MCG/DL Total Iron Binding Capacity 308 MCG/DL Percent Iron Saturation 12.0 % Hepatitis A IgM Antibody NEGATIVE Hepatitis B Surface Antigen NEGATIVE Hepatitis B Core IgM Antibody NEGATIVE Hepatitis C Antibody NEGATIVE Test 08/12/16 04:55 White Blood Count 5.7 TH/MM3 Red Blood Count 3.68 MIL/MM3 Hemoglobin 11.7 GM/DL Hematocrit 34.3 % Mean Corpuscular Volume 93.3 FL Mean Corpuscular Hemoglobin 31.9 PG Mean Corpuscular Hemoglobin 34.2 % Concent Red Cell Distribution Width 13.9 % Platelet Count 138 TH/MM3 Mean Platelet Volume 8.7 FL Neutrophils (%) (Auto) 66.4 % Lymphocytes (%) (Auto) 20.0 % Monocytes (%) (Auto) 10.3 % Eosinophils (%) (Auto) 3.0 % Basophils (%) (Auto) 0.3 % Neutrophils # (Auto) 3.8 TH/MM3 Lymphocytes # (Auto) 1.1 TH/MM3 Monocytes # (Auto) 0.6 TH/MM3 Eosinophils # (Auto) 0.2 TH/MM3 Basophils # (Auto) 0.0 TH/MM3 CBC Comment DIFF FINAL Differential Comment Sodium Level 146 MEQ/L Potassium Level 3.7 MEQ/L Chloride Level 113 MEQ/L Carbon Dioxide Level 25.4 MEQ/L Anion Gap 8 MEQ/L Blood Urea Nitrogen 15 MG/DL Creatinine 0.80 MG/DL Estimat Glomerular Filtration 68 ML/MIN Rate Random Glucose 83 MG/DL Calcium Level 8.3 MG/DL Total Bilirubin 0.7 MG/DL Aspartate Amino Transf 50 U/L (AST/SGOT) Alanine Aminotransferase 165 U/L (ALT/SGPT) Alkaline Phosphatase 47 U/L Total Protein 5.4 GM/DL Albumin 2.8 GM/DL Physical Exam CHEST: Chest is clear to auscultation and percussion. CARDIAC: Regular rate and rhythm with no murmur gallop or rubs. ABDOMEN: Soft, nondistended, nontender; ; bowel sounds are present in all four quadrants. EXTREMITIES: No clubbing, cyanosis, or edema. SKIN: Normal; no rash; no jaundice. Assessment and Plan Physician Comments Pt with h/o multiple bouts of SBO secondary to adhesions now improved with conservative measures..Also noted elevated lfts that are trending dowmward nicely.. Ct revealed CBD 18 mm stable as compared to previous studies..s/p cholycystectomy..?passed sludge vv mild ampullary stenosis/ would follow pending labs/serology tests.. fu LFTS....could consider EUS as outpt as well...mrcp cant be done 2 to pacer.. Wesley Soriano MD Aug 12, 2016 10:44
[2016-08-12 11:39] LABS: BLOOD, URINE NEG (NEG); COMMENT (UR) CULT NOT INDICATED; CULTURE IF INDICATED CULT NOT INDICATED; GLUCOSE,URINE NEG (NEG); KETONE, URINE NEG (NEG); MUCUS URINE FEW /lpf (OCC); NITRITE,URINE NEG (NEG); SQUAMOUS EPITHELIAL CELL URINE <1 /hpf (0-5); URINE COLOR YELLOW (YELLW/STRAW)
[2016-08-12 12:00] VITALS: BP 114/58; PULSE 68; RESP 20; TEMP 97.6; O2SAT 96
[2016-08-12] MEDS ORDERED: PSYLLIUM FIBER SF/GF 6 GM POWD PKT PO SCH (13:00)
[2016-08-12 13:46] LABS: ANA SCREEN NEG (NEG)
--- NOTE | 2016-08-12 16:33 | HHI.DCPOC ---
Discharge Care Plan Diagnosis: (1) Partial small bowel obstruction (2) Abdominal pain, recurrent (3) Transaminitis Goals to Promote Your Health * To prevent worsening of your condition and complications * To maintain your health at the optimal level Directions to Meet Your Goals Take your medications as prescribed Follow your dietary instruction Follow activity as directed Keep your appointments as scheduled Take your immunizations and boosters as scheduled If your symptoms worsen call your PCP, if no PCP go to Urgent Care Center or Emergency Room Smoking is Dangerous to Your Health. Avoid second hand smoke Call the 24-hour hour crisis hotline for domestic abuse at Andrzej Quiñonez MD Aug 12, 2016 16:33
--- NOTE | 2016-08-12 16:38 | HHI.DS ---
Discharge Summary Admission Date Aug 09, 2016 at 21:37 Discharge Date: Aug 12, 2016 Admitting Diagnosis Partial small bowel obstruction (1) Partial small bowel obstruction ICD Code: K56.69 (2) Abdominal pain, recurrent ICD Code: R10.9 (3) Acute kidney injury superimposed on chronic kidney disease ICD Code: N17.9 (4) Transaminitis ICD Code: R74.0 Procedures None Brief History - From Admission Ms. 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 Abdomen/pelvis CT shows at least a partial small bowel obstruction with no free fluid or free air. The patient is seen in the ER. She reports diffuse abdominal pain that is sharp in character and worse in the upper abdomen accompanied by nausea without vomiting. Her symptoms started shortly after lunch today at around 1 p.m. Tried Levsin after she went home; ineffective in ameliorating symptoms. She reports normal BM occurred the morning of 08/09/2016. She has had small bowel obstruction in the past; the last episode was three years ago. Reports that she ate mushroom and crab for lunch with seafood chowder. Denies fever, chills, dizziness, syncope, chest pain, shortness of breath, dysuria, or any with urination, or diarrhea. She denies history of diabetes mellitus, hypertension, coronary artery disease though medical records indicate a past medical history of type 2 diabetes mellitus. She is currently not on any medications for diabetes. . CBC/BMP: 08/12/16 0455 08/12/16 0455 Significant Findings Laboratory Tests Test 08/09/16 08/10/16 08/11/16 08/11/16 19:05 05:31 05:56 10:41 Blood Urea Nitrogen 26 MG/DL (7-18) 27 MG/DL (7-18) 22 MG/DL (7-18) Creatinine 1.06 MG/DL 1.04 MG/DL (0.50-1.00) (0.50-1.00) Estimat Glomerular Filtration 49 ML/MIN (>89) 50 ML/MIN (>89) 66 ML/MIN (>89) Rate Random Glucose 130 MG/DL 123 MG/DL (74-106) (74-106) Aspartate Amino Transf 130 U/L (15-37) 642 U/L (15-37) 128 U/L (15-37) (AST/SGOT) Alanine Aminotransferase 58 U/L (10-53) 533 U/L (10-53) 268 U/L (10-53) (ALT/SGPT) White Blood Count 12.0 TH/MM3 (4.0-11.0) Neutrophils (%) (Auto) 83.2 % 84.5 % (16.0-70.0) (16.0-70.0) Neutrophils # (Auto) 10.0 TH/MM3 8.0 TH/MM3 (1.8-7.7) (1.8-7.7) Lymphocytes (%) (Auto) 6.1 % (9.0-44.0) Monocytes (%) (Auto) 9.2 % (0.0-8.0) Lymphocytes # (Auto) 0.6 TH/MM3 (1.0-4.8) Chloride Level 110 MEQ/L 114 MEQ/L (98-107) (98-107) Magnesium Level 1.4 MG/DL (1.5-2.5) Total Protein 6.0 GM/DL 5.6 GM/DL (6.4-8.2) (6.4-8.2) Albumin 3.2 GM/DL 2.8 GM/DL (3.4-5.0) (3.4-5.0) Red Blood Count 3.92 MIL/MM3 (4.00-5.30) Platelet Count 143 TH/MM3 (150-450) Sodium Level 146 MEQ/L (136-145) Calcium Level 8.4 MG/DL (8.5-10.1) Iron Level 37 MCG/DL (50-170) Percent Iron Saturation 12.0 % (20-50) Test 08/12/16 08/12/16 04:55 09:00 Red Blood Count 3.68 MIL/MM3 (4.00-5.30) Hematocrit 34.3 % (35.0-46.0) Platelet Count 138 TH/MM3 (150-450) Monocytes (%) (Auto) 10.3 % (0.0-8.0) Sodium Level 146 MEQ/L (136-145) Chloride Level 113 MEQ/L (98-107) Estimat Glomerular Filtration 68 ML/MIN (>89) Rate Calcium Level 8.3 MG/DL (8.5-10.1) Aspartate Amino Transf 50 U/L (15-37) (AST/SGOT) Alanine Aminotransferase 165 U/L (10-53) (ALT/SGPT) Total Protein 5.4 GM/DL (6.4-8.2) Albumin 2.8 GM/DL (3.4-5.0) Urine Leukocyte Esterase SMALL (NEG) Urine Mucus FEW /lpf (OCC) Imaging Last Impressions Abdomen X-Ray 08/11/16 0600 Signed Impressions: Service Date/Time: Thursday, August 11, 2016 04:37 - CONCLUSION: Nonspecific bowel gas pattern. Demetrius Downs MD Abdomen/Pelvis CT 08/09/16 1916 Signed Impressions: Service Date/Time: Tuesday, August 09, 2016 20:53 - CONCLUSION: 1. Focally thickened loop of small bowel in the lower anterior abdomen associated with at least a partial small bowel obstruction. No free fluid or free air. 2. Postoperative cholecystectomy with stable biliary ductal dilatation. 3. Previous fusion lumbar spine. 4. Stable seroma anterior abdominal wall. Manish Gill MD PE at Discharge GENERAL: Elderly female in no apparent distress. CARDIOVASCULAR: Normal rate and regular rhythm without murmurs, gallops, or rubs. RESPIRATORY: Good respiratory efforts. Breath sounds equal and clear to auscultation bilaterally. GASTROINTESTINAL: Abdomen soft, non-distended. Normal and active bowel sounds. MUSCULOSKELETAL: Extremities without cyanosis, or edema. NEURO: Alert & Oriented x4 to person, place, time, situation. Moves all ext x4 PSYCH: Appropriate mood and affect. Pt update on day of discharge No more loose stools. Patient tolerated regular diet. 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 Patient cleared for discharge. Hospital Course 85-year-old female with history of recurrent small bowel obstruction admitted with another episode of obstruction. Evaluation and treatment course below: Partial small bowel obstruction: Likely secondary to adhesions from previous abdominal surgeries. Resolved with conservative management. Patient had bowel movements and tolerated a diet - Abdomen/pelvis CT on admission shows focally thickened loop of small bowel in the lower anterior abdomen associated with at least a partial small bowel obstruction. No free fluid or free air. Postop cholecystectomy with stable biliary ductal dilatation. Previous fusion lumbar spine. Stable seroma anterior abdominal wall. -General surgery and GI followed the patient. Ice pack for anterior abdominal wall seroma. Acute on chronic kidney disease - resolved with IVF Transaminitis: Much improved. Etiology unclear, ?pass sludge. -GI followed. Plan for endoscopy ultrasound possibly outpatient. Chronic hypomagnesemia: The patient normally gets infusion of 4 g IV magnesium sulfate 3 times a week. This was continued in the hospital. Pt Condition on Discharge: Stable Discharge Disposition: Discharge Home Discharge Time: <= 30 minutes Discharge Instructions DIET: Follow Instructions for: As Tolerated, No Restrictions Activities you can perform: Regular-No Restrictions Follow up Referrals: Gastroenterology - 2 Weeks with Wesley Soriano MD Continued Medications: Cholecalciferol (Vitamin D) 1,000 Unit Tab 2000 UNITS PO DAILY Nutritional Supplement #1 Ref 0 BOTTLE Clopidogrel (Plavix) 75 Mg Tab 75 MG PO DAILY Blood Clot Prevention #30 Ref 0 TAB Colesevelam (Welchol) 625 Mg Tab 625 MG PO BID Hyperlipidemia,type 2 diabetes #180 Ref 0 TAB Cyanocobalamin (Vitamin B-12) 1,000 Mcg Tab 2000 MCG PO DAILY Nutritional Supplement #1 Ref 0 BOTTLE Diazepam (Diazepam) 5 Mg Tab 5 MG PO HS Ref 0 TAB Diphenhydramine-Acetaminophen (Acetaminophen Pm Extra St) 500-25 mg Tab 2 TAB PO HS PRN SLEEP Ergocalciferol (Drisdol) 50,000 Unit Cap 27150 UNITS PO MONTHLY ON THE Nutritional Supplement #30 Ref 0 CAP Escitalopram (Lexapro) 20 Mg Tab 20 MG PO DAILY #30 Ref 0 TAB Hydrocortisone Rectal (Proctosol Hc) 2.5% Cream 1 APPLIC RECTAL BID PRN HEMORRHOIDS #1 Ref 0 TUBE Lactobacillus Rhamnosus (GG) (Align) 4 Mg Cap 4 MG PO DAILY Nutritional Supplement Ref 0 CAP Magnesium Lactate (Mag-Tab Sr) 84 Mg Tab 84 MG PO BID Magnesium Sulfate Inj (Magnesium Sulfate Inj) 4 Gm/100 Ml Bag 4 GM IV MoWeFr Oyster Shell (Calcium) 500 Mg Tab 500 MG PO HS Pancrelipase (Creon) 12,000-38,000-60,000 Units Cap 1 CAP PO TIDAC Digestive Aid #90 Ref 0 CAP Polyvinyl Alcohol-Povidone Opth Drops (Freshkote Opth) 2.7-2 % Soln 1 DROP EACH EYE QID Dry Eye #1 Ref 0 BOTTLE Triamcinolone Topical (Triamcinolone Topical) 0.1 % Oint 1 APPLIC TOPICAL BID PRN RASH Ref 0 GM Vitamins-Lipotropics (B-Complex) 1 Tab 1 TAB PO DAILY Nutritional Supplement Ref 0 TAB Wheat Dextrin Powder (Benefiber Powder) 1 Scoop Container 2 SCOOP PO DAILY Mix in water or juice Constipation #1 Ref 0 CONTAINER Discontinued Medications: Hyoscyamine Odt (Levsin-SL) 0.125 Mg Subl 0.125 MG SL Q6H Gastrointestinal disorders #7 Ref 0 TAB.SL Andrzej Quiñonez MD Aug 12, 2016 16:37
[2016-08-13 03:49] LABS: MITOCHONDRIAL ABS LESS THAN 20.0 U (())
[2016-10-19] MEDS ORDERED: ZOLP10TA3 PO (13:51)
[2016-10-19] MEDS ORDERED: LEVS0.124 SL (13:53)
[2016-10-30] MEDS ORDERED: ABX PO (12:55)
[2016-11-02] MEDS ORDERED: NITR1CAP36 PO (11:05)
[2016-11-11] MEDS ORDERED: VITACAP7 PO (11:29)
[2016-11-11] MEDS ORDERED: WHEA1POW9 PO (11:29)
[2016-11-11] MEDS ORDERED: ERGO1CAP30 PO (11:29)
[2016-11-27] MEDS ORDERED: CETI10 PO (11:50)
== END 2016-08-12 20:55 | disposition home or self-care (01) | DRG 389 ==
LOC: NEPA 18:55 → NEDA 21:37 → N06A 08-10 01:12 → HCPC 08-10 11:06
PROVIDERS: ADMIT Family Medicine; ATTEND Family Medicine
DX: K56.5 Intestinal adhesions [bands] with obstruction (postinfection) (principal); N17.9 Acute kidney failure, unspecified; E11.22 Type 2 diabetes mellitus with diabetic chronic kidney disease; E86.0 Dehydration; E83.42 Hypomagnesemia; I25.10 Atherosclerotic heart disease of native coronary artery without angina pectoris; H91.93 Unspecified hearing loss, bilateral; K21.9 Gastro-esophageal reflux disease without esophagitis; N18.9 Chronic kidney disease, unspecified; I12.9 Hypertensive chronic kidney disease with stage 1 through stage 4 chronic kidney disease, or unspecified chronic kidney disease; R74.0 Nonspecific elevation of levels of transaminase and lactic acid dehydrogenase [LDH]; M19.90 Unspecified osteoarthritis, unspecified site; F32.9 Major depressive disorder, single episode, unspecified; F41.9 Anxiety disorder, unspecified; Z85.828 Personal history of other malignant neoplasm of skin; Z90.49 Acquired absence of other specified parts of digestive tract; Z91.040 Latex allergy status; Z95.0 Presence of cardiac pacemaker; Z96.651 Presence of right artificial knee joint; Z98.1 Arthrodesis status
CPT/HCPCS: 74000; 74177; 80048; 80053; 80061; 80074; 80076; 81001; 83520; 83540; 83550; 83690; 83735; 85025; 85027; 85610; 85730; 86038; 86256; 96374; 96375; J2270; J2405; J3475; J7030; J7040; Q9967

== ENCOUNTER 2017-06-08 13:25 | Emergency (ER) | payer MEDICARE ==
[~2017-06-08 13:25] MED LIST changes: +ALLE60TA PO; +AMOX500C PO; -BENEPOW8 PO; +CALC12502 PO; -CALC500T35 PO; +CETI10 PO; +CLIN300C5 PO; +COLE625 PO; -CREO3000 PO; -CYPR4TAB PO; +ESTR0.62 VAGINAL; +FRESDRO EACH EYE; +MAG-84TA PO; +NITR1CAP36 PO; +ORAL0.1P OROPHARYNG; +PROC2.5C RECTAL; -VITA400T14 PO; +VITA500012 PO; -WELC625T2 PO; +WHEA1POW9 PO; +ZOLP10TA3 PO; +[UNRECOGNIZED DRUG - CODE] IV; +[UNRECOGNIZED DRUG - OTHER] VAGINAL
[2017-06-08 13:29] VITALS: BP 149/67; PULSE 91; RESP 14; TEMP 98.4; O2SAT 95
[2017-06-08] MEDS ORDERED: CREO3000 PO (16:49)
[2017-06-11] MEDS ORDERED: ANAL1CRE2 RECTAL (11:22)
[2017-06-16] MEDS ORDERED: AMOX500C PO (11:43)
[2017-06-18] MEDS ORDERED: VESI5TAB2 PO (15:29)
[2017-06-18] MEDS ORDERED: PROC2.5C RECTAL (15:29)
[2017-06-18] MEDS ORDERED: CYPR4TAB PO (15:29)
[2017-06-18] MEDS ORDERED: B-122000 PO (15:44)
[2017-06-18] MEDS ORDERED: VITA2000 PO (15:44)
[2017-06-18] MEDS ORDERED: LEVS0.123 PO (15:44)
[2017-06-18] MEDS ORDERED: CALC12502 PO (15:44)
[2017-06-18] MEDS ORDERED: BIOTSPR PO (15:44)
== END 2017-06-08 13:55 | disposition left against medical advice (07) ==
LOC: NED 13:25
DX: Z53.21 Procedure and treatment not carried out due to patient leaving prior to being seen by health care provider (principal)
CPT/HCPCS: 99281

== ENCOUNTER 2017-06-08 14:47 | Emergency (ER) | payer MEDICARE ==
[~2017-06-08] VITALS: Ht 165.1 cm; Wt 74.6 kg
[2017-06-08 15:31] VITALS: BP 156/70; PULSE 85; RESP 18; TEMP 99; O2SAT 94
[2017-06-08] MEDS ORDERED: CREO3000 PO (16:49)
[2017-06-08] MEDS ORDERED: DIATRIZOATE MEGLUM/DIATRIZOATE SOD 9 ML CUP PO ONE (17:00)
[2017-06-08] MEDS ORDERED: SODIUM CHLORIDE 0.9% FLUSH 10 ML FLUSH IV FLUSH PRN (17:00)
--- NOTE | 2017-06-08 17:03 | PD ---
HPI Chief Complaint: GI Complaint Time Seen by Provider: 16:45 Travel History International Travel<30 days: No Contact w/Intl Traveler<30days: No Traveled to known affect area: No History of Present Illness HPI 86-year-old female here for evaluation of black stool and abdominal pain. The patient has had several abdominal surgeries as well as partial small bowel obstruction. She is complaining of 2 weeks of right-sided and right upper abdominal discomfort worse with bending over, better with rest, pressure, mild to moderate. She states that 2 weeks ago she had an episode of black stool, then again had one episode this morning. She is on Plavix. No other antiplatelets or anticoagulants. She reports similar episodes of black stool when she had partial bowel obstruction last August, and believes that is what is going on today. She denies vomiting. No fevers. No urinary symptoms. No constitutional symptoms such as weakness, lightheadedness, or shortness of breath. PFSH Past Medical History Hx Anticoagulant Therapy: Yes (PLAVIX) Arthritis: Yes Asthma: No Autoimmune Disease: No Blood Disorders: Yes (pt is on plavix) Anxiety: Yes Depression: Yes Heart Rhythm Problems: Yes Cancer: Yes (BASAL CELL, SQUAMOUS CELL 1992) Cardiovascular Problems: Yes High Cholesterol: Yes Chemotherapy: No Chest Pain: No Congestive Heart Failure: No COPD: No Cerebrovascular Accident: No Coronary Artery Disease: Yes Diabetes: Yes Patient Takes Glucophage: No Diminished Hearing: Yes (BOTH EARS) Endocrine: Yes Gastrointestinal Disorders: Yes (hx of intestinal obstruction due to ischemia , 32 per pt ) GERD: Yes Genitourinary: No Headaches: No Hepatitis: No Hiatal Hernia: Yes Hypertension: Yes Immune Disorder: No Implanted Vascular Access Dvce: Yes Kidney Stones: Yes Musculoskeletal: No Neurologic: No Psychiatric: No Reproductive: No Respiratory: No Migraines: No Myocardial Infarction: No Radiation Therapy: No Renal Failure: No Seizures: No Sickle Cell Disease: No Sleep Apnea: No Thyroid Disease: No Ulcer: Yes Influenza Vaccination: No ?: Not Menopausal: Yes Past Surgical History Abdominal Surgery: Yes (,COLOSTOMY REVERSAL,,COLON RESECTION) Appendectomy: Yes (1951) Arteriovenous Shunt: No Body Medical Devices: back hardware Cardiac Surgery: No Cholecystectomy: Yes Ear Surgery: No Endocrine Surgery: No Eye Surgery: Yes (eye muscle repair [place] cataract surgery) Genitourinary Surgery: No Gynecologic Surgery: Yes (hysterectomy) Hysterectomy: Yes (1963,partial,ovaries left) Insulin Pump: No Joint Replacement: Yes (KNEE 2003) Neurologic Surgery: Yes (1994,laminectomy s1,l5,4 fused 2007,lumbar laminectomy & fusion) Oral Surgery: No Pacemaker: Yes Thoracic Surgery: Yes (PACEMAKER PLACEMENT) 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, hemorrhoidectomy) Social History Alcohol Use: No Tobacco Use: No Substance Use: No Allergies-Medications (Allergen,Severity, Reaction): Coded Allergies: adhesive (Verified Allergy, Severe, REDNESS, ITCH, SWELLING, 06/08/17) grass pollen (Verified Allergy, Severe, 06/08/17) sneezes latex (Verified Allergy, Severe, SWELLING AND ITCHING, 06/08/17) oxycodone (Verified Allergy, Severe, DOES NOT KNOW, 06/08/17) *MDRO Multi-Drug Resistant Organism (Verified Allergy, Unknown, 06/08/17) MRSA simvastatin (Verified Adverse Reaction, Severe, DOES NOT KNOW, 06/08/17) Uncoded Allergies: fish oil (Allergy, Severe, 10/23/16) restssis (Allergy, Severe, 10/23/16) steri strips (Allergy, Severe, skin irritation pain and itching, 06/04/10) Reported Meds & Prescriptions Reported Meds & Active Scripts Active Reported Creon (Pancrelipase) 3,000-9,500-15,000 Units Cap 1 Cap PO TIDPC Clindamycin (Clindamycin HCl) 300 Mg Cap 300 Mg PO BID Amoxicillin 500 Mg Cap 500 Mg PO ONCE Tioconazole Vaginal 6.5 % Oin 1 Appl VAGINAL BID Benefiber (Wheat Dextrin) 144 Gm Powder 2 Pkt PO DAILY Ergocalciferol 50,000 Unit Cap 50,000 Units PO MONTHLY Levsin-SL (Hyoscyamine Sulfate) 0.125 Mg Subl 0.125 Mg SL Q6H Zolpidem (Zolpidem Tartrate) 10 Mg Tab 10 Mg PO HS PRN Mag-Tab Sr (Magnesium Lactate) 84 Mg Tab 84 Mg PO BID Magnesium Sulfate Inj (Magnesium Sulfate) 4 Gm/100 Ml Bag 4 Gm IV MOWEFR Proctosol Hc 2.5% (Hydrocortisone Rectal 2.5%) 2.5% Cream 1 Applic RECTAL BID PRN Freshkote Opth (Polyvinyl Alcohol-Povidone Opth Drops) 2.7-2 % Soln 1 Drop EACH EYE QID Align (Lactobacillus Rhamnosus (GG)) 4 Mg Cap 4 Mg PO DAILY Vitamin D3 (Cholecalciferol) 1,000 Unit Tab 2,000 Units PO DAILY Vitamin B-12 (Cyanocobalamin) 1,000 Mcg Tab 2,000 Mcg PO DAILY Calcium (Oyster Shell) 500 Mg Tab 500 Mg PO HS Acetaminophen Pm Extra St (Diphenhydramine-Acetaminophen) 500-25 mg Tab 2 Tab PO HS PRN Triamcinolone Topical (Triamcinolone Acetonide) 0.1 % Oint 1 Applic TOPICAL BID PRN Welchol (Colesevelam HCl) 625 Mg Tab 625 Mg PO BID Lexapro (Escitalopram Oxalate) 20 Mg Tab 20 Mg PO DAILY Diazepam 5 Mg Tab 5 Mg PO HS Plavix (Clopidogrel Bisulfate) 75 Mg Tab 75 Mg PO DAILY Review of Systems Except as stated in HPI: all other systems reviewed are Neg Physical Exam Narrative GENERAL: Well-developed, well-nourished, comfortable, no apparent distress. SKIN: Focused skin assessment warm/dry. HEAD: Atraumatic. Normocephalic. EYES: Pupils equal and round. No scleral icterus. No injection or drainage. ENT: Mucous membranes pink and moist. NECK: Trachea midline. No JVD. CARDIOVASCULAR: Regular rate and rhythm. No murmur appreciated. RESPIRATORY: No accessory muscle use. Clear to auscultation. Breath sounds equal bilaterally. GASTROINTESTINAL: Abdomen soft, nondistended. Mild right mid and right upper quadrant tenderness without peritoneal signs. Rest of abdomen is soft and nontender. Rectal exam shows no masses, no fissures, no hemorrhoids, heme- negative brown stool. MUSCULOSKELETAL: No obvious deformities. No clubbing. No cyanosis. No edema. NEUROLOGICAL: Awake and alert. No obvious cranial nerve deficits. Motor grossly within normal limits. Normal speech. PSYCHIATRIC: Appropriate mood and affect; insight and judgment normal. Data Data Last Documented VS Vital Signs Date Time Temp Pulse Resp B/P (MAP) Pulse Ox O2 Delivery O2 Flow Rate FiO2 06/08/17 18:42 67 16 146/87 (106) 99 Room Air 06/08/17 15:31 99.0 Orders Orders Complete Blood Count With Diff (06/08/17 16:59) Comprehensive Metabolic Panel (06/08/17 16:59) Prothrombin Time / Inr (Pt) (06/08/17 16:59) Act Partial Throm Time (Ptt) (06/08/17 16:59) Urinalysis - C+S If Indicated (06/08/17 16:59) Ct Abd/Pel W Iv Contrast(Rout) (06/08/17 16:59) Iv Access Insert/Monitor (06/08/17 16:59) Ecg Monitoring (06/08/17 16:59) Oximetry (06/08/17 16:59) Sodium Chloride 0.9% Flush (Ns Flush) (06/08/17 17:00) Diatrizoate Liq ( Gastroview Liq) (06/08/17 17:00) Oral Contrast - Adult (06/08/17 17:02) Iohexol 350 Inj (Omnipaque 350 Inj) (06/08/17 19:43) Labs Laboratory Tests Test 06/08/17 17:25 White Blood Count 6.3 TH/MM3 Red Blood Count 4.22 MIL/MM3 Hemoglobin 13.3 GM/DL Hematocrit 39.3 % Mean Corpuscular Volume 93.1 FL Mean Corpuscular Hemoglobin 31.5 PG Mean Corpuscular Hemoglobin Concent 33.8 % Red Cell Distribution Width 12.6 % Platelet Count 187 TH/MM3 Mean Platelet Volume 8.0 FL Neutrophils (%) (Auto) 63.7 % Lymphocytes (%) (Auto) 21.1 % Monocytes (%) (Auto) 8.7 % Eosinophils (%) (Auto) 6.1 % Basophils (%) (Auto) 0.4 % Neutrophils # (Auto) 4.0 TH/MM3 Lymphocytes # (Auto) 1.3 TH/MM3 Monocytes # (Auto) 0.6 TH/MM3 Eosinophils # (Auto) 0.4 TH/MM3 Basophils # (Auto) 0.0 TH/MM3 CBC Comment DIFF FINAL Differential Comment Prothrombin Time 10.4 SEC Prothromb Time International Ratio 1.0 RATIO Activated Partial Thromboplast Time 29.9 SEC Urine Collection Type CLEAN CATCH Urine Color YELLOW Urine Turbidity CLEAR Urine pH 5.5 Urine Specific [place] 1.008 Urine Protein NEG mg/dL Urine Glucose (UA) NEG mg/dL Urine Ketones NEG mg/dL Urine Occult Blood NEG Urine Nitrite NEG Urine Bilirubin NEG Urine Leukocyte Esterase NEG Urine WBC 0-2 /hpf Urine Squamous Epithelial Cells 0-5 /hpf Microscopic Urinalysis Comment CULT NOT INDICATED Urine Collection Time 17:25 Blood Urea Nitrogen 26 MG/DL Creatinine 0.88 MG/DL Random Glucose 87 MG/DL Total Protein 7.1 GM/DL Albumin 3.5 GM/DL Calcium Level 9.4 MG/DL Alkaline Phosphatase 61 U/L Aspartate Amino Transf (AST/SGOT) 20 U/L Alanine Aminotransferase (ALT/SGPT) 20 U/L Total Bilirubin 0.7 MG/DL Sodium Level 142 MEQ/L Potassium Level 3.9 MEQ/L Chloride Level 106 MEQ/L Carbon Dioxide Level 28.3 MEQ/L Anion Gap 8 MEQ/L Estimat Glomerular Filtration Rate 61 ML/MIN [facility] Medical Decision Making Medical Screen Exam Complete: Yes Emergency Medical Condition: Yes Medical Record Reviewed: Yes Differential Diagnosis Upper GI bleed, small bowel obstruction, partial small bowel obstruction, anemia Narrative Course Vital signs show heart rate 67, blood pressure 146/87, pulse ox 99% on room air , oral temp of 99F. CBC: WBC 6.3, hemoglobin 13.3, hematocrit 39.3, platelets 187. CMP is unremarkable. Coags are within normal limits. UA is not suggestive of UTI. CT abdomen pelvis: CONCLUSION: 1. No acute abnormality demonstrated. 2. Stable chronic findings including atherosclerosis of the abdominal aorta, small cysts and patchy cortical thinning/scarring of both kidneys, cholecystectomy changes, ventral hernia repair changes and a stable anterior abdominal wall seroma. Patient was made aware of all findings. She is resting comfortably and feels well. Her stool is heme-negative and brown. There are no peritoneal signs on abdominal exam. She has had this seroma for a long time and has had it drained several times. At this point she is stable for discharge home with outpatient follow-up with her primary care physician this week. Also advised that she follow-up with her a&p mechanic Dr. Wisdom this week as well. She was advised on when to return to the emergency department. She verbalizes understanding and agreement with plan. [facility] Point of Care Internal Pos. & Neg. Controls: Passed Fecal Specimen Occult Blood: Negative Comment Heme-negative brown stool. Diagnosis Primary Impression: Abdominal pain Qualified Codes: R10.9 - Unspecified abdominal pain Referrals: Chief Recordist 3 days Primary Care Physician 3 days Additional Instructions: Follow-up with your primary care physician this week. Follow-up with your a&p mechanic this week. Return to the emergency department for worsening symptoms or any other concerns. Disposition: 01 DISCHARGE HOME Condition: Stable Pino Toth MD Jun 08, 2017 17:03
[2017-06-08 17:45] LABS: BILIRUBIN, URINE NEG (NEG); BLOOD, URINE NEG (NEG); GLUCOSE,URINE NEG (NEG); KETONE, URINE NEG (NEG); NITRITE,URINE NEG (NEG); PH, URINE 5.5 (5.0-8.5); URINE LEUKOCYTE ESTERASE NEG (NEG)
[2017-06-08 17:47] LABS: BASOPHIL % 0.4 % (0.0-2.0); EOSINOPHIL # 0.4 TH/MM3 (0-0.4); EOSINOPHIL % 6.1 % (0.0-4.0); HEMATOCRIT 39.3 % (35.0-46.0); HEMOGLOBIN 13.3 GM/DL (11.6-15.3); LYMPH % 21.1 % (9.0-44.0); LYMPHOCYTE # 1.3 TH/MM3 (1.0-4.8); MEAN CELL VOLUME 93.1 FL (80.0-100.0); MEAN CORPUSCULAR HEMOGLOBIN 31.5 PG (27.0-34.0); MEAN CORPUSCULAR HGB CONC 33.8 % (32.0-36.0); MONO % 8.7 % (0.0-8.0); MONOCYTE # 0.6 TH/MM3 (0-0.9); NEUT % 63.7 % (16.0-70.0); PLATELET COUNT 187 TH/MM3 (150-450); RED BLOOD COUNT 4.22 MIL/MM3 (4.00-5.30); RED CELL DISTRIBUTION WIDTH 12.6 % (11.6-17.2); WHITE BLOOD COUNT 6.3 TH/MM3 (4.0-11.0)
[2017-06-08 17:50] LABS: SQUAMOUS EPITHELIAL CELL URINE 0-5 /hpf (0-5); URINE COLOR YELLOW (YELLW/STRAW); WBC, URINE 0-2 /hpf (0-5)
[2017-06-08 18:24] LABS: CHLORIDE 106 MEQ/L (98-107); SODIUM (NA) 142 MEQ/L (136-145)
[2017-06-08 18:28] LABS: ALBUMIN 3.5 GM/DL (3.4-5.0); BICARBONATE 28.3 MEQ/L (21.0-32.0); BLOOD UREA NITROGEN 26 MG/DL (7-18); CALCIUM 9.4 MG/DL (8.5-10.1); GLUCOSE,RANDOM 87 MG/DL (74-106)
[2017-06-08 18:31] VITALS: O2SAT 96
[2017-06-08 18:31] LABS: ALT (GPT) 20 U/L (10-53); AST (GOT) 20 U/L (15-37); CREATININE 0.88 MG/DL (0.50-1.00); GLOMERULAR FILTRATION RATE 61 ML/MIN (>89); PROTHROMBIN TIME - PATIENT 10.4 SEC (9.8-11.6)
[2017-06-08 18:33] LABS: TOTAL BILIRUBIN ADULT 0.7 MG/DL (0.2-1.0); TOTAL PROTEIN 7.1 GM/DL (6.4-8.2)
[2017-06-08 18:34] LABS: ALKALINE PHOSPHATASE 61 U/L (45-117)
[2017-06-08 18:42] VITALS: BP 146/87; PULSE 67; RESP 16; O2SAT 99
[2017-06-08] MEDS ORDERED: IOHEXOL 350 MG/ML 10 ML VIAL (for RAD DIAG) IVCONTRAST ONE (19:43)
--- NOTE | 2017-06-08 19:54 | RADRPT ---
EXAM DATE/TIME: 06/08/2017 19:34 [facility] COMPARISON: CT ABDOMEN & PELVIS W CONTRAST, August 09, 2016, 20:53. INDICATIONS : Two episodes of black stool. IV CONTRAST: 75 cc Omnipaque 350 (iohexol) IV ORAL CONTRAST: Prescribed oral contrast ingested. RADIATION DOSE: 15.89 CTDIvol (mGy) MEDICAL HISTORY : Cardiovascular disease. Hypercholesterolemia. Hypertension.Anticoagulant therapy. SURGICAL HISTORY : Appendectomy. Cholecystectomy.Colon resection.Lumbar surgery. ENCOUNTER: Initial ACUITY: 1 day PAIN SCALE: 0/10 LOCATION: pelvis TECHNIQUE: Volumetric scanning of the abdomen and pelvis was performed. Using automated exposure control and ad justment of the mA and/or kV according to patient size, radiation dose was kept as low as reasonably achievable to obtain optimal diagnostic quality images. DICOM format image data is available electro nically for review and comparison. FINDINGS: No acute abnormality seen of the liver, spleen, pancreas, adrenal glands or kidneys. Small cysts are again noted of both kidneys and there is mild patchy cortical thinning/scarring. Previous cholecystectomy. Unchanged mild prominence of the common bile duct typical of a reservoir ty pe effect. There is atherosclerosis of the abdominal aorta. No aneurysm. No obstruction or acute inflammatory changes are seen of the gastrointestinal tract. Ventral hernia repair changes are again noted and there is an unchanged 4 x 11 cm seroma in the anter ior abdominal wall. CONCLUSION: 1. No acute abnormality demonstrated. 2. Stable chronic findings including atherosclerosis of the abdominal aorta, small cysts and patchy c ortical thinning/scarring of both kidneys, cholecystectomy changes, ventral hernia repair changes and a stable anterior abdominal wall seroma. Danyel Allen MD on June 08, 2017 at 19:49 Board Certified Radiologist. This report was verified electronically.
[2017-06-08 20:47] VITALS: BP 140/77
[2017-06-11] MEDS ORDERED: ANAL1CRE2 RECTAL (11:22)
[2017-06-16] MEDS ORDERED: AMOX500C PO (11:43)
[2017-06-18] MEDS ORDERED: PROC2.5C RECTAL (15:29)
[2017-06-18] MEDS ORDERED: CYPR4TAB PO (15:29)
[2017-06-18] MEDS ORDERED: VESI5TAB2 PO (15:29)
[2017-06-18] MEDS ORDERED: LEVS0.123 PO (15:44)
[2017-06-18] MEDS ORDERED: CALC12502 PO (15:44)
[2017-06-18] MEDS ORDERED: BIOTSPR PO (15:44)
[2017-06-18] MEDS ORDERED: B-122000 PO (15:44)
[2017-06-18] MEDS ORDERED: VITA2000 PO (15:44)
== END 2017-06-08 20:50 | disposition home or self-care (01) ==
LOC: PHED 14:47
DX: R10.9 Unspecified abdominal pain (principal); R10.11 Right upper quadrant pain; R19.5 Other fecal abnormalities; I10 Essential (primary) hypertension; E11.9 Type 2 diabetes mellitus without complications; I25.10 Atherosclerotic heart disease of native coronary artery without angina pectoris; K21.9 Gastro-esophageal reflux disease without esophagitis; E78.00 Pure hypercholesterolemia, unspecified; F41.8 Other specified anxiety disorders; Z79.01 Long term (current) use of anticoagulants; Z87.19 Personal history of other diseases of the digestive system; Z87.39 Personal history of other diseases of the musculoskeletal system and connective tissue; Z85.828 Personal history of other malignant neoplasm of skin
CPT/HCPCS: 74177; 80053; 81001; 85025; 85610; 85730; 99284; Q9963; Q9967

== ENCOUNTER 2018-01-14 08:18 | Observation (INO) ==
[2018-01-14] MEDS ORDERED: Sodium Chlor 0.9% Inj 500 ML IV.SIG SCH (09:00)
[2018-01-14] MEDS ORDERED: ceFAZolin Inj 2,000 MG in Sodium Chlor 0.9% Inj 100 ML IV.SIG SCH (09:00)
[2018-01-14] MEDS ORDERED: Chlorhexidine Gluconate 2% 1 Pack (2 Cloths) TOPICAL SCH (09:00)
[2018-01-14] MEDS ORDERED: Metoprolol Tartrate 25 MG Tablet PO SCH (09:00)
[2018-01-14] MEDS ORDERED: Heparin Central Flush 100 UNIT/ML 5 ML Vial IV.FLUSH PRN ×2 (09:09)
[2018-01-14 09:38] LABS: Baso # (Auto) 0.1 th/mm3 (0.0-0.2); Baso % (Auto) 1.1 % (0.0-2.0); Eos # (Auto) 0.3 th/mm3 (0.0-0.4); Hematocrit 40.1 % (35.0-46.0); Hemoglobin 13.6 gm/dL (11.6-15.3); Lymph # (Auto) 1.3 th/mm3 (1.0-4.8); Lymph % (Auto) 23.6 % (9.0-44.0); Mean Corpuscular HGB Conc 33.9 % (32.0-36.0); Mean Corpuscular Hemoglobin 32.3 pg (27.0-34.0); Mean Corpuscular Volume 95.4 fL (80.0-100.0); Mean Platelet Volume 8.4 fL (7.0-11.0); Mono # (Auto) 0.5 th/mm3 (0.0-0.9); Neut # (Auto) 3.2 th/mm3 (1.8-7.7); Neut % (Auto) 59.3 % (16.0-70.0); Platelet Count 199 th/mm3 (150-450); Red Cell Distribution Width 13.2 % (11.6-17.2); White Blood Count 5.5 th/mm3 (4.0-11.0)
[2018-01-14] MEDS: ceFAZolin 2 GM Premix Inj 2 GM/100 ML BAG IV.SIG ONE ×2 (10:48→16:49)
[2018-01-14] MEDS ORDERED: Dexamethasone Inj 20 MG/5 ML Vial ONE (10:58)
[2018-01-14] MEDS ORDERED: MethylPREDNISolone Sod Succinate Inj 40 MG/ML Vial ONE (10:58)
[2018-01-14] MEDS ORDERED: methylPREDNISolone acetate 40 MG/ML VIAL ONE (11:06)
[2018-01-14] MEDS: Bupivacaine/Epinephrine Inj 0.25% 50 ML Vial ONE (11:12)
[2018-01-14] MEDS: Bupivacaine PF 0.25% Inj 30 ML Vial ONE (11:12)
[2018-01-14] MEDS ORDERED: Lidocaine PF 1% Inj 5 ML Syringe INFILTRATN ONE (12:00)
[2018-01-14] MEDS ORDERED: Post-op Orders (for Pharmacy) OTHER ONE (12:46)
--- NOTE | 2018-01-14 12:46 | P.OP ---
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 Sequential compression device were placed on bilateral lower extremities. Following induction of adequate general anesthesia with a laryngeal mass the patient's abdomen was prepped and draped in usual sterile fashion with Betadine. A timeout procedure was performed. Following completion timeout procedure everyone's satisfaction within the room, proposed incision in the supraumbilical midline was made with a marking pen and infiltrated local anesthetic. Elliptical incision was carried out excising previous scar using a scalpel. Hemostasis was controlled with electrocautery. Dissection continued posteriorly until a chronic inflammatory mass was encountered. It was from surrounding subcutaneous fatty tissue circumferentially. It was entered laterally on the left side and a large amount of kincaid proteinaceous material was decompressed and suctioned out. The roof of the seroma cavity was completely excised with electrocautery. Attention was then turned removal of the posterior wall of the seroma cavity. This was done carefully using electrocautery staying directly on the posterior wall as to minimize any injury to the patient's abdominal wall. It appeared there was foreign body consistent with prior mesh placed which was intimately involved in the posterior wall of the seroma cavity. Any mesh that was involved with the wall was excised in its entirety. The specimens were passed off the field for pathologic evaluation. The wound was copiously irrigated with saline. 2 points were the anterior fascia had been breached overlying the rectus muscle were closed with running 2-0 PDS sutures. Due to the laxity in this patient's abdominal wall and obvious previous history of incisional hernia piece of [place] bio a mesh was cut to fit exactly where the previous seromatous cavity was removed and held in place with intermittent 2-0 PDS sutures. Copious irrigation ensued. Subcutaneous fatty tissue was then quilted to the bio a mesh in the abdominal wall on both sides with interrupted 2-0 Vicryl and 2 -0 PDS sutures. The midline space was then closed with interrupted 2-0 Vicryl sutures. More superficial 2-0 Vicryl sutures were placed in the midline incision was closed with a running 4-0 Monocryl subcuticular suture. Attention was then turned to the right upper quadrant incision. There was an indented invaginated scar. Local anesthetic was infiltrated generously around the scar and it was excised in its entirety and an elliptical incision using the scalpel. Hemostasis control electrocautery. Subcutaneous scar tissue was excised as well. These were discarded. Local anesthetic mix of Depo-Medrol was then infiltrated in the area with the patient had significant discomfort to palpation. The wound was then closed in layers with 2-0 Vicryl and 4-0 Monocryl. Right upper quadrant scar was covered with skin glue. A PIC O dressing was placed over the upper midline scar and a standard fashion not using any additional adhesive due to patient's sensitivity to adhesives. The picot dressing was connected to suction there was no evidence of leak. Abdominal binder was placed. The patient tolerated the procedure without apparent complication. Sponge needle and instrument counts were correct at the end of the case. The patient was transported to [facility] in stable condition
[2018-01-14] MEDS ORDERED: fentaNYL Citrate Inj 100 MCG/2 ML Ampul ONE (13:02)
[2018-01-14] MEDS ORDERED: Morphine Inj 4 MG/ML Vial ONE (13:02)
[2018-01-14] MEDS ORDERED: *morphine SULFATE 4 MG/ML PERIprocedure ONLY ONE (13:07)
[2018-01-15] MEDS ORDERED: PRAMOXINE RECTAL PRN (14:27)
[2018-01-15] MEDS ORDERED: HYDROCORTISONE RECTAL PRN (14:27)
[2018-01-15] MEDS ORDERED: Hypromellose 0.3% Opth Gel 10 GM Bottle EACH EYE PRN (14:27)
[2018-01-15] MEDS ORDERED: [UNRECOGNIZED DRUG - REMARK] MUCOUS MEM PRN (14:27)
--- NOTE | 2018-01-15 14:35 | P.PNGS ---
Subjective Patient reports: feels better (Tolerating oral diet. Has not been receiving home meds. Is more convenient for her family to pick her up after sabianist tomorrow then, late tonight to get her. She would like to stay overnight if possible. She is she has been up to the bathroom without problems.) Physical Exam Vital signs: Vital Signs 01/14/18 16:00 01/14/18 20:15 01/15/18 00:14 Temperature 97.5 F L 97.4 F L 97.0 F L Pulse Rate 80 63 71 Respiratory Rate Blood Pressure 155/66 H 136/64 122/59 L Pulse Oximetry 94 L 96 96 01/15/18 04:02 01/15/18 08:00 01/15/18 12:00 Temperature 97.5 F L 98.1 F 97.2 F L Pulse Rate 68 77 69 Respiratory Rate Blood Pressure 134/58 L 131/72 125/61 Pulse Oximetry 95 94 L 95 Intake & Output 01/14/18 01/15/18 01/15/18 18:59 06:59 18:59 Intake Total 580 / 580 Output Total Balance -15 / -15 580 / 580 Weight 75.1 kg 77 kg Intake: IV 100 / 100 Oral 480 / 480 Output: Estimated Blood Loss Other: # Voids 2 Date of Last Bowel Movement 01/14/18 01/14/18 Weight On Admission 75.1 kg Narrative: Her lungs are clear. Her abdomen is soft and nondistended. The PIC O dressing has moderate amount of dried bloody drainage. Right upper quadrant incision is healing beautifully beneath the skin glue without sign of infection. Her extremities are nonedematous. Assessment and Plan - Assessment (1) Abdominal wall mass Code(s): R22.2 - Localized swelling, mass and lump, trunk Status: Acute (2) Right upper quadrant pain Code(s): R10.11 - Right upper quadrant pain Status: Acute - Plan Postop day 1 status post excision of abdominal wall mass consistent with chronic seroma associated with hernia mesh. Status post excision of right upper quadrant scar where pain was located and injection of local anesthetic and steroid. Patient is doing very well. I reordered her regular medications that she takes at home on a daily basis. Plan will be made for discharge home tomorrow with her family. I will make sure discharge orders in place and she has a prescription for pain medication. She is comfortable with this plan of care.
--- NOTE | 2018-01-15 14:43 | P.DS ---
Date of admission: 01/14/18 17:50 Primary care physician: Carlito Velazquez MD Anticipated date of discharge: 01/16/18 Brief History from admission: Patient is a pleasant 87-year-old woman has had multiple previous abdominal surgeries and developed a seroma that is chronic and recurrent and creates discomfort. She additionally has a right upper quadrant incision that is tender to touch. She desires operative therapy. DS: Diagnosis - Discharge Diagnosis (1) Abdominal wall mass Status: Chronic (2) Right upper quadrant pain Status: Chronic DS: Medications - Discharge Medications Prescriptions: hydrocodone-acetaminophen 1 tab PO Q4H PRN #18 tab PRN Reason: Pain Scale 1 To 5 DS: Summary Hospital Course: Patient was admitted postoperatively due to pain for pain control. She has done well with oral pain medications. Her incisions are healing as expected. She has been up to the bathroom without difficulty. She is tolerating a diet. Her regular home medications of been ordered. She desires discharge when her family can come pick her up after jainism tomorrow. - Time Spent with Patient Total time spent providing and/or coordinating discharge services: Less than 30 minutes - Quality: AMI Clinical Trial Participant: No - Quality: Stroke Symptom Onset Unknown: No - Quality: VTE Is this test being ordered to rule out VTE?: No Deep Vein Thrombosis/Pulmonary Embolism Present on Admission: No Exam Vital signs: Vital Signs 01/14/18 16:00 01/14/18 20:15 01/15/18 00:14 Temperature 97.5 F L 97.4 F L 97.0 F L Pulse Rate 80 63 71 Respiratory Rate 18 Blood Pressure 155/66 H 136/64 122/59 L Pulse Oximetry 94 L 96 96 01/15/18 04:02 01/15/18 08:00 01/15/18 12:00 Temperature 97.5 F L 98.1 F 97.2 F L Pulse Rate 68 77 69 Respiratory Rate 18 18 18 Blood Pressure 134/58 L 131/72 125/61 Pulse Oximetry 95 94 L 95 Intake & Output 01/14/18 01/15/18 01/15/18 18:59 06:59 18:59 Intake Total 580 / 580 Output Total Balance -15 / -15 580 / 580 Weight 75.1 kg 77 kg Intake: IV 100 / 100 Oral 480 / 480 Output: Estimated Blood Loss Other: # Voids 2 Date of Last Bowel Movement 01/14/18 01/14/18 Weight On Admission 75.1 kg Narrative: Lungs are clear to auscultation. Abdomen is soft and nondistended. PIC O dressing is moderate dried bloody drainage. Right upper quadrant incision is healing well beneath skin glue. Her extremities are nonedematous. Results Procedures completed during hospitalization: Open excision of chronic seromatous Mass, placement of [place] bio a mesh. Placement of PIC O dressing. Excision of right upper quadrant scar with injection of local anesthetic with steroid. Discharge Plan - Discharge Disposition Patient Disposition: Discharge Home - Discharge Condition Condition: Good - Discharge Order Discharge Orders: Discharge Order (Routine); Ordered 01/16/18 Ordered By: Carlito Reynolds - Discharge Details Anticipated Discharge Date: 01/16/18 Discharge Comment: Okay for discharge around noon when her family family can get her - Physicians Team Primary Care Provider: Carlito Velazquez Attending Provider: Carliot Reynolds - Rxs /Orders / Referrals /Forms Prescriptions: New hydrocodone-acetaminophen 5-325 mg Tablet 1 tab PO Q4H PRN (Reason: Pain Scale 1 To 5) Qty: 18 RF: 0 Continue acetaminophen 325 mg Tablet 650 mg PO Q4-6H PRN (Reason: Pain) Bifidobacterium infantis [Align] 4 mg Capsule 4 mg PO DAILY cholecalciferol (vitamin D3) 2,000 unit Capsule 2,000 unit PO DAILY clopidogrel 75 mg Tablet 75 mg PO DAILY colesevelam [WelChol] 625 mg Tablet 625 mg PO BID cyanocobalamin (vitamin B-12) 2,000 mcg Tablet 2,000 mcg PO DAILY diazepam 5 mg Tablet 5 mg PO DAILY ergocalciferol (vitamin D2) [Vitamin D2] 50,000 unit Capsule 50,000 units PO QMONTH escitalopram oxalate 20 mg Tablet 20 mg PO DAILY eye lubricant combination no.1 [FreshKote] 2-0.9-1.8 % Drops 1 drp OPHTHALMIC (EYE) QID PRN (Reason: Dry Eye(S)) hydrocortisone [Procto-Med HC] 2.5 % Cream With Perineal Applicator 1 applic IL DAILY PRN (Reason: Acute Pain) hydrocortisone-pramoxine [Analpram-HC] 2.5-1 % Cream 1 applic IL QID PRN (Reason: Acute Pain) [id number] [Creon] 3,000-9,500- 15,000 unit Capsule,Delayed Release(Dr/Ec) 1 cap PO TIDPC magnesium chloride [Mag 64] 64 mg Tablet,Delayed Release (Dr/Ec) 64 mg PO BID Oyster Shell Calcium 500 500 mg PO DAILY saliva stimulant comb. no.3 [Biotene Moisturizing Mouth] [place],Non-Aerosol 1 applic MUCOUS MEMBRANE Q1H PRN (Reason: Dry Mouth) tioconazole 6.5 % Ointment 1 applic Vaginal DAILY vitamin B complex Tablet Extended Release 1 tab PO DAILY wheat dextrin [Benefiber Clear SF (dextrin)] 3 gram/3.5 gram Powder In Packet 2 packet PO BID zolpidem 10 mg Tablet 10 mg PO HS PRN (Reason: Sleep) No Action magnesium sulfate in 0.9 %NaCl 4 gram/100 mL Piggyback 4 g IV DIRECTED Referrals: Carlito Velazquez MD [Primary Care Provider] - See Instructions - Discharge Instructions Patient Printed Instructions: Incision and Drainage (DC)
[2018-01-15] MEDS: Calcium Carbonate 500 MG Tablet PO SCH (16:00)
--- NOTE | 2018-01-15 16:12 | ECG ---
Date Performed: 01/14/2018 Time Performed: 09:22:42 PTAGE: 87 years EKG: Sinus rhythm MARKED LEFT AXIS DEVIATION POSSIBLE RIGHT VENTRICULAR CONDUCTION DELAY VOLTAGE CRITERIA FOR LVH When compared to previous tracing, QRS voltage is slightly Greater, otherwise no significant change. ABNO RMAL ECG PREVIOUS TRACING : 04/16/2016 00.58 DOCTOR: Raheem Montaño Interpretating Date/Time 01/15/2018 16:10:45
[2018-01-15] MEDS: Vitamin B Complex/Vitamin C Tablet PO SCH (18:00)
[2018-01-15] MEDS: Lactobacillus Acidophilus/L. Spores Tablet PO SCH (18:03)
[2018-01-15] MEDS: [UNRECOGNIZED DRUG - REMARK] PO SCH (18:03)
[2018-01-15] MEDS ORDERED: WHEAT DEXTRIN PO SCH (21:00)
[2018-01-15] MEDS: diazePAM 5 MG Tablet PO SCH (21:32)
[2018-01-16] MEDS: Bupivacaine PF 0.25% Inj 30 ML Vial ONE (03:11)
[2018-01-16] MEDS: Bupivacaine/Epinephrine Inj 0.25% 50 ML Vial ONE (03:11)
[2018-01-16] MEDS: [UNRECOGNIZED DRUG - REMARK] PO SCH (10:18)
[2018-01-16] MEDS: Vitamin B Complex/Vitamin C Tablet PO SCH (10:18)
[2018-01-16] MEDS: Lactobacillus Acidophilus/L. Spores Tablet PO SCH (10:19)
[2018-01-16] MEDS: Calcium Carbonate 500 MG Tablet PO SCH (10:19)
[2018-01-16] MEDS: diazePAM 5 MG Tablet PO SCH (10:20)
--- NOTE | 2018-01-16 13:39 | P.PNGS ---
Subjective Patient reports: no new complaints (Ready to go home), tolerating a regular diet Physical Exam Vital signs: Vital Signs 01/15/18 16:00 01/15/18 20:00 01/15/18 20:31 Temperature 97.4 F L 97.8 F Pulse Rate 70 65 Respiratory Rate 18 16 16 Blood Pressure 130/63 135/65 Pulse Oximetry 94 L 96 01/16/18 00:33 01/16/18 08:00 01/16/18 12:00 Temperature 97.8 F 96.5 F L 97.3 F L Pulse Rate 60 67 67 Respiratory Rate 16 19 16 Blood Pressure 136/79 178/79 H 134/63 Pulse Oximetry 96 97 95 Intake & Output 01/15/18 01/16/18 01/16/18 18:59 06:59 18:59 Intake Total 1760 / 1760 Balance 1760 / 1760 Weight 77 kg Intake: IV 1000 / 1000 LR 1000 mL Inj 1,000 ML @ 30 1000 / 1000 mls/hr IV.SIG .Q24H [facility] Rx#: [id number] Oral 760 / 760 Other: # Voids 3 Date of Last Bowel Movement 01/14/18 Narrative: Patient sitting up in the chair ready to go home Assessment and Plan - Assessment (1) Abdominal wall mass Code(s): R22.2 - Localized swelling, mass and lump, trunk Status: Chronic (2) Right upper quadrant pain Code(s): R10.11 - Right upper quadrant pain Status: Chronic - Plan Patient ready to go home has recovered from her surgery Follow-up arrangements made Progress Note: Quality - AMI Clinical Trial Participant: No
== END 2018-01-16 13:26 | disposition home or self-care (01) ==
LOC: HSDC 08:18 → N07 08:18
PROVIDERS: ADMIT Surgery Trauma Surgery; ATTEND Surgery Trauma Surgery